=== PATIENT | female | born 1955 | race Caucasian/White ===

== ENCOUNTER → 2020-03-26 09:04 | Outpatient (CLI) | payer OTHER, SELFPAY ==
--- NOTE | ~2020-03-26 | DEXA_ITS ---
Bone Density Report Name: Tonya Brambila Age: 64 Sex: Female Ethnicity: White Date of : 1955 Indication: monitoring treatment; inflammatory bowel disease; history of glucocorticoids; asthma or emphysema; hysterectomy; Referring Provider: RAUL, JATIN Study: Bone densitometry was performed. Exam Date: March 26, 2020 Accession number: [id number] Bone Density: Region BMD T-score Z-score Classification AP Spine (L1, L2, L3) 1.012 -0.1 1.6 Normal Femoral Neck (Left) 0.759 -0.8 0.6 Normal Total Hip (Left) 1.192 2.0 3.2 Normal Femoral Neck (Right) 0.784 -0.6 0.8 Normal Total Hip (Right) 1.059 1.0 2.1 Normal Total Hip Mean 1.126 1.5 2.7 Normal World Health Organization criteria for BMD impression classify patients as: Normal (T-score at or above -1.0), Osteopenia (T-score between -1.0 and -2.5), or Osteoporosis (T-score at or below -2.5). 10-year Fracture Risk: FRAX not reported because: All T-scores for Spine Total, Hip Total, Femoral Neck at or above -1.0 Treated for osteoporosis Previous Exams: Region Exam Age BMD T-score BMD Change BMD Change Date g/cm2 vs Baseline vs Previous AP Spine(L1, L2, L3) 03/26/2020 64 1.012 -0.1 -0.050 -0.067* 03/05/2013 57 1.078 0.5 0.017 0.040* 06/20/2010 54 1.039 0.2 -0.023 -0.023 05/24/2006 50 1.062 0.4 Total Hip(Left) 03/26/2020 64 1.192 2.0 0.170 0.173* 03/05/2013 57 1.019 0.6 -0.003 0.083* 06/20/2010 54 0.936 0.0 -0.085 -0.085 05/24/2006 50 1.021 0.7 Total Hip(Right) 03/26/2020 64 1.059 1.0 0.124 0.090* 03/05/2013 57 0.968 0.2 0.034 0.052* 06/20/2010 54 0.916 -0.2 -0.019 -0.019 05/24/2006 50 0.935 -0.1 *Denotes significance at 95% confidence level, LSC for AP Spine = 0.022 g/cm2, LSC for Total Hip = 0.027 g/cm2 Clinical Information Provided by Patient: Has taken Glucocorticoids Is being treated for osteoporosis Has used the following medications: HRT (i.e. estrogen/hormone therapy), Vitamin D, Calcium Has the following medical conditions: Asthma or Emphysema, Inflammatory bowel diseases, Hysterectomy Patient maximum height was 58.5 Menopause Age: 40 No regular weight bearing exercise Drinks caffeinated beverages Onset of menses at age 11 Number of children 2
== END ==
PROVIDERS: Visit Provider Nurse Practitioner
DX: Z78.0 Asymptomatic menopausal state (principal)
CPT/HCPCS: 77080

== ENCOUNTER 2020-05-15 12:47 | Outpatient (CLI) | payer MEDICARE, SELFPAY ==
--- NOTE | ~2020-05-15 | XR_ITS ---
EXAMINATION: XR lumbar spine min 4V DATE: 05/15/2020 13:22 INDICATION: Low back pain TECHNIQUE: Anteroposterior, lateral in neutral, flexion and extension, and bilateral oblique views of the lumbar spine, and cone-down lateral view of the lumbosacral junction were obtained. COMPARISON: 11/08/2012 FINDINGS: There is no fracture, dislocation, or subluxation. No laxity is present with flexion or ext ension. The vertebral body heights are normal. There is mild to moderate loss of intervertebral disc space height throughout the lumbar spine with interval worsening since the comparison examination. Th ere is no fracture. There is severe facet osteoarthritis at L5-S1. Cholecystectomy clips are noted. T he bowel gas pattern is normal. A moderate volume of colonic stool is present. IMPRESSION: 1. Moderate lumbar spondylosis with slight interval worsening. Reviewed, dictated and finalized at location A.
== END 2020-05-15 12:48 | disposition home or self-care (01) ==
PROVIDERS: PCP Internal Medicine; Visit Provider Internal Medicine
DX: M47.816 Spondylosis without myelopathy or radiculopathy, lumbar region (principal)
CPT/HCPCS: 72110

== ENCOUNTER 2020-06-17 07:16 | Outpatient (CLI) | payer MEDICARE, SELFPAY ==
--- NOTE | 2020-06-17 07:27 | ECHO_ITS ---
Patient Info Name: Tonya Brambila Age: 64 years : 1955 Gender: Female Ht: 57 in Wt: 233 lbs BSA: 2.14 m2 HR: 74 bpm BP: 146 / 47 mmHg Technical Quality: Good Exam Date: 06/17/2020 7:41 AM Exam Location: [facility] Patient Status: Outpatient Admit Date: 06/17/2020 Staff Ordering Physician: Kwabena Liu MD Psych Specialist: Michael Clifford, HUBERT, RT Attending Provider: Kwabena Liu MD Referring Physician: Noe PAGE; Exam Type: CA echo doppler color flow Study Info Indications R94.31 - Abnormal electrocardiogram ECG EKG Complete two-dimensional, color flow and Doppler transthoracic echocardiogram is performed. Summary 1. Complete two-dimensional, color flow and Doppler transthoracic echocardiogram is performed. 2. Left ventricular chamber dimension is normal. 3. Left ventricular systolic function is normal, estimated at 65-70%. 4. The left ventricular diastolic function is normal. 5. E/e' 9 is minimally elevated. 6. There is mild tricuspid valve regurgitation. Left Ventricle E/e' 9 is minimally elevated. Left ventricular chamber dimension is normal. Left ventricular systolic function is normal, estimated at 65-70%. The left ventricular diastolic function is normal. Right Ventricle Right ventricular chamber dimension is normal. Right ventricular systolic function is normal. Left Atria Left atrial chamber dimension is normal. Right Atria Right atrial chamber dimension is normal. Aortic Valve The aortic valve is trileaflet. There is no aortic valve stenosis. There is no aortic valve regurgitation. Pulmonic Valve There is no pulmonic regurgitation. Mitral Valve There is no mitral valve stenosis. There is no mitral valve regurgitation. Tricuspid Valve There is mild tricuspid valve regurgitation. RVSP is not calculated due to an inadequate TR jet. Pericardium/Pleural There is no pericardial effusion. Inferior Vena Cava Normal inferior vena cava with >50% collapse upon inspiration consistent with normal right atrial pressure, 5 mmHg. Aorta The aortic root size at the sinus of Valsalva is normal. Left Ventricular Outflow Tract Name Value Normal LVOT 2D LVOT Diameter 2.0 cm LVOT Doppler LVOT Peak Gradient 6 mmHg LVOT Mean Gradient 3 mmHg LVOT VTI 23 cm LVOT VTI/AV VTI Ratio 0.8 LVOT Stroke Volume 70 ml LVOT CO 5.0 l/min LVOT CI 2.4 l/min/m2 Mitral Valve Name Value Normal MV Doppler MV Decel [place] 494 cm/s2 MV PHT 54 ms MV Area (PHT) 4.1 cm2 4.0-5.0 MV Diastolic Function ---------
== END 2020-06-17 07:17 | disposition home or self-care (01) ==
PROVIDERS: PCP Internal Medicine; Visit Provider Internal Medicine
DX: R94.31 Abnormal electrocardiogram [ECG] [EKG] (principal); I36.1 Nonrheumatic tricuspid (valve) insufficiency
CPT/HCPCS: 93306

== ENCOUNTER 2020-11-04 10:59 | Outpatient (CLI) | payer MEDICARE, SELFPAY | END 2020-11-04 11:00 | disposition home or self-care (01) | LOC: ANHCOVIDVC 10:59 | PROVIDERS: PCP Internal Medicine | DX: Z23 Encounter for immunization (principal) | CPT/HCPCS: 0001A; 91300 ==

== ENCOUNTER 2020-11-25 11:01 | Outpatient (CLI) | payer MEDICARE, SELFPAY | END 2020-11-25 11:02 | disposition home or self-care (01) | LOC: ANHCOVIDVC 11:01 | PROVIDERS: PCP Internal Medicine | DX: Z23 Encounter for immunization (principal) | CPT/HCPCS: 0002A; 91300 ==

== ENCOUNTER 2021-04-21 11:39 | Emergency (ER) | payer MEDICARE, SELFPAY ==
[2021-04-21 11:44] VITALS: BP 132/66; PULSE 105; RESP 22; O2SAT 99
--- NOTE | 2021-04-21 12:00 | ED.GENADULT ---
HPI - General Adult General Chief complaint: Allergic Reaction Stated complaint: allergic rxn Time Seen by Provider: 04/21/21 11:43 Source: patient History of Present Illness HPI narrative: Patient is a 65 y/o female complaining of moderate throat swelling, facial flush and SOB starting less 1 hour ago. She states that she just came out physical therapy and ate some webb and egg. She used her asthma inhaler which seems to help with her SOB. She does not feel throat swelling currently. Related Data Home Medications Medication Instructions Recorded Confirmed estradiol 10 mcg vaginal tablet 10 mcg VAGINAL 2XW 12/28/19 12/25/20 aspirin 81 mg tablet,delayed 81 mg PO DAILY 05/14/20 12/25/20 release calcium carbonate 500 mg calcium 500 mg PO DAILY 05/14/20 12/25/20 (1,250 mg) tablet cetirizine 10 mg tablet 10 mg PO DAILY 05/14/20 12/25/20 cholecalciferol (vitamin D3) 1,250 50,000 unit PO 2XW cap 05/14/20 12/25/20 mcg (50,000 unit) capsule esomeprazole magnesium 20 mg 20 mg PO DAILY 05/14/20 12/25/20 capsule,delayed release lactase 4,500 unit tablet See Rx Instructions PO .COMPLEX 05/14/20 12/25/20 naltrexone 50 mg tablet 4.5 mg PO DAILY tablet 05/15/20 12/25/20 cholecalciferol (vitamin D3) 25 25 mcg PO DAILY 06/19/20 12/25/20 mcg (1,000 unit) capsule Allergies Allergy/AdvReac Type Severity Reaction Status Date / Time cephalexin Allergy Severe HIVES Verified 12/22/20 15:08 fentanyl Allergy Severe o2 sats Verified 12/22/20 15:08 dropped, severe prolonged itching ibuprofen Allergy Severe HIVES AND Verified 12/22/20 15:08 BLADDER SWELLING morphine Allergy Severe THROAT Verified 12/22/20 15:08 SWELLING naproxen Allergy Severe LEGS Verified 12/22/20 15:08 SWELLING AND KIDNEY PROBLEMS nitrofurantoin Allergy Severe HIVES Verified 12/22/20 15:08 duloxetine Allergy Intermediate SORES IN Verified 12/22/20 15:08 MOUTH tapentadol Allergy Intermediate BREATHING Verified 12/22/20 15:08 ISSUES AND ITCHING erythromycin base Allergy Unknown Vomiting Verified 12/22/20 15:08 codeine AdvReac Severe NAUSEA AND Verified 12/22/20 15:08 VOMITING AND MIGRAINE propoxyphene AdvReac Severe NAUSEA AND Verified 12/22/20 15:08 VOMIT cyclobenzaprine AdvReac shortness Verified 12/22/20 15:08 [From Flexeril] of breath Review of Systems Constitutional: Constitutional: Denies chills, Denies fever(s), Denies headache(s) and Denies weakness Eyes: Eyes: Denies blurry vision ENT: Denies headache(s), Denies neck pain and Reports throat swelling Cardiovascular: Cardiovascular: Denies chest pain and Reports dyspnea Respiratory: Respiratory: Denies cough and Reports dyspnea Gastrointestinal: Gastrointestinal: Denies abdominal pain, Denies diarrhea, Denies nausea and Denies vomiting Genitourinary: Genitourinary: Denies hematuria and Denies dysuria Musculoskeletal: Musculoskeletal: Denies back pain and Denies neck pain Integumentary/Breasts: Skin/Breast: Reports other (facial flushing) Neurologic: Denies headache(s) and Denies weakness PMFSH Past Medical History Medical History Abnormal EKG Body mass index (BMI) 45.0-49.9, adult Chronic low back pain Diabetes type 2, uncontrolled Elevated homocysteine Encounter for routine adult health examination without abnormal findings Essential (primary) hypertension Floaters in visual field Follow up GERD (gastroesophageal reflux disease) Hearing loss of both ears History of cataract Low back pain 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
[2021-04-21] MEDS: diphenhydrAMINE HCl INJ 50 MG/ML VIAL IV PUSH (12:11)
[2021-04-21 14:00] VITALS: BP 107/46; PULSE 80; RESP 18; O2SAT 100
[2021-04-21 16:03] VITALS: BP 125/85; PULSE 78; RESP 18; O2SAT 99
== END 2021-04-21 18:20 | disposition home or self-care (01) ==
PROVIDERS: Emergency Provider Emergency Medicine; PCP Internal Medicine
DX: T78.40XA Allergy, unspecified, initial encounter (principal); E11.9 Type 2 diabetes mellitus without complications; I10 Essential (primary) hypertension; K21.9 Gastro-esophageal reflux disease without esophagitis; G47.33 Obstructive sleep apnea (adult) (pediatric); E55.9 Vitamin D deficiency, unspecified; Z79.82 Long term (current) use of aspirin; Z79.4 Long term (current) use of insulin
CPT/HCPCS: 96374; 99284; J1200

== ENCOUNTER 2021-04-28 13:36 | Outpatient (CLI) | payer MEDICARE, SELFPAY ==
--- NOTE | ~2021-04-28 | CT_ITS ---
EXAMINATION: CT soft tissue neck w con EXAM DATE: 04/28/2021 14:01 INDICATION: R59.9 - Enlarged lymph nodes, unspecified. Left ear and jaw pain for 5 days. TECHNIQUE: Spiral CT of the neck was performed following intravenous injection of 75 mL Omnipaque 350 . Axial, coronal and sagittal images were reviewed. The dose-length product (DLP) for this examinat ion was 448.31 mGy-cm. The exposure was tailored according to patient size (auto mA exposure control ), and iterative reconstruction (ASIR) was used as additional dose reduction technique. There is no prior study for comparison. FINDINGS: The thyroid gland is unremarkable. The submandibular and parotid glands are symmetric. There is no cervical lymphadenopathy. There are no masses identified. The superior mediastinum is unremarkable. The airway is unremarkable. Parapharyngeal and pre-glottic fat planes are preserve d. There are medially oriented carotid arteries without stenosis. The orbits are unremarkable. V isualized sinuses and mastoid air cells are well aerated. Moderate cervical disc disease, mild to m oderate arthropathy. There is cervical spondylosis. IMPRESSION: Unremarkable CT neck examination. Reviewed, dictated and finalized at location A.
== END 2021-04-28 13:37 | disposition home or self-care (01) ==
PROVIDERS: PCP Internal Medicine; Visit Provider Internal Medicine
DX: R59.9 Enlarged lymph nodes, unspecified (principal); H92.02 Otalgia, left ear; M47.812 Spondylosis without myelopathy or radiculopathy, cervical region
CPT/HCPCS: 70491; Q9967

== ENCOUNTER 2021-10-12 11:27 | Outpatient (CLI) | payer MEDICARE, SELFPAY ==
[2021-10-12 12:10] LABS: Anion Gap 11 mmol/L (8-16); Blood Urea Nitrogen 12 mg/dL (7-17); Calcium 8.9 mg/dL (8.4-10.2); Carbon Dioxide 21 mmol/L (22-30); Chloride 107 mmol/L (98-107); Estimated Glomerular Filt Rate > 60; Glucose 161 mg/dL (65-110); Potassium 3.8 mmol/L (3.4-5.0); Sodium 139 mmol/L (137-145)
== END 2021-10-12 11:28 | disposition home or self-care (01) ==
LOC: ANHSURGERY 11:32
PROVIDERS: Anesthesiology; PCP Internal Medicine; Visit Provider Otolaryngology
DX: E11.65 Type 2 diabetes mellitus with hyperglycemia (principal); Z01.818 Encounter for other preprocedural examination
CPT/HCPCS: 36415; 80048

== ENCOUNTER 2021-10-15 02:53 | Day surgery (SDC) | payer MEDICARE, SELFPAY ==
[2021-10-06 15:52] VITALS: BMI 49.8
--- NOTE | 2021-10-06 16:00 | SUR.PREOP ---
Report to the Outpatient Waiting Room, entrance under the green pavilion located off [facility], at time 0815__ on date _10/15/21 . OR Time: _1015 . - You and your visitor will be asked a series of questions to screen for COVID 19 for your protection. - A mask is required within the hospital. Preoperative COVID Testing Requirements: No COVID Test needed if: (proof is required; if not received patient will have Rapid Test prior to entry) - Patient has received COVID Vaccine at least 14 days prior to procedure date or - Patient has positive COVID test result within last 90 days of surgery date. COVID Test needed if above criteria is not met If not COVID vaccinated a COVID test must be conducted within 72 hours of surgery and patient is asked to isolate self from time of testing until procedure. You will go to the [facility] for your COVID testing. The [facility] is located at the corner of [address] [facility]. You will only be called if COVID results are positive and your surgeon may reschedule your elective surgery date. Patients may have clear liquids (water, carbonated beverages, clear teas, apple juice) until 3 hours prior to surgery with a maximum of 20 ounces. - No food from midnight until time of surgery - Infants may have breast milk until 4 hours before surgery, infant formula 6 hours prior to surgery. - Children will be allowed to drink immediately following surgery. If applicable, please bring a bottle or sippy cup to assist with drinking. Juice, water, soda, and popsicles are readily available. For infants on formula, please bring formula the day of surgery. Pacifiers are allowed. Take the following medications with a SIP of water the morning of surgery: _use of albuterol inhaler Medications to discontinue per physician ___vitamins Date to take last dose__10/12/21 Please no make-up, nail indonesian, hairspray, perfume, deodorant, or body powder the day of surgery. No jewelry (including any body piercings) or valuables the day of surgery, leave them at home. Please take a shower or bath the night before, or the morning of, surgery with an antibacterial soap. Wear comfortable, loose fitting clothing. Children are encouraged to wear pajamas. - Jewelry must be removed prior to entering the operating room. Rings and piercings that are not removed may be cut off. - The hospital will not accept responsibility for valuables. - Please leave all valuables, including medications, at home the day of surgery. bring albuterol inhaler with you day of surgery. If you are going home after surgery, a licensed boat driver must drive you home. - NO public transportation without another adult. - We recommend that an adult stay with you for 24 hours following discharge. - We also recommend that you do not drive, make important decision, drink alcoholic beverages, or take any drugs that were not prescribed by your health care provider for at least 24 hours after your discharge time. For Pediatric surgeries, we recommend two adults accompany the child home (only one inside the building at this time). One visitor will be allowed to accompany the patient into the hospital. Patients visitor will be instructed to remain with patient at all times or leave the building. We will allow the visitor to come back to the postoperative area when patient is ready. Follow any additional instructions given to you from your surgeon. Telephone instructions given to chayito zhong and asked if any additional questions and then verbalized understanding. Patient advised to call surgeon office or pre surgery nurse liaison [phone] if any additional questions.
--- NOTE | 2021-10-13 06:32 | PM.HPGS ---
History of Present Illness History of Present Illness Consent: Risks, benefits, and alternatives have been discussed and questions answered. Patient agrees to proceed with procedure. Chief complaint: sialadenitis Narrative: Tonya Brambila is a 65 year old female with recurrent episodes of left sialadenitis he has had a stone in the past is interested in having the gland removed she understand the risks regarding marginal weakness hemorrhage infection PMFSH Past Medical History Medical History Abnormal EKG Body mass index (BMI) 45.0-49.9, adult Chronic low back pain Diabetes type 2, uncontrolled Elevated homocysteine Encounter for Medicare annual wellness exam Encounter for routine adult health examination without abnormal findings Essential (primary) hypertension Floaters in visual field Follow up GERD (gastroesophageal reflux disease) Hearing loss Hearing loss of both ears History of cataract Left ear pain Low back pain 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 NELLY on CPAP Parotitis, acute Reactive airway disease Swollen gland Vitamin D deficiency Family History Family History Mother Family history of dementia Social History Social History Smoking status: Never smoker Second hand tobacco smoke exposure: No Alcohol intake: never Spiritual care concerns: No Comments social family medical history noncontributory Meds Home Medications and Allergies Home Medications Medication Instructions Recorded Confirmed Type cholestyramine-aspartame 4 gram 4 gm PO BID #180 each 07/16/19 10/06/21 Rx oral powder for susp in a packet estradiol 10 mcg vaginal tablet 10 mcg VAGINAL 2XW 12/28/19 10/06/21 History aspirin 81 mg tablet,delayed 81 mg PO DAILY 05/14/20 10/06/21 History release calcium carbonate 500 mg calcium 500 mg PO DAILY 05/14/20 10/06/21 History (1,250 mg) tablet cetirizine 10 mg tablet 10 mg PO DAILY 05/14/20 10/06/21 History cholecalciferol (vitamin D3) 1,250 50,000 unit PO 2XW cap 05/14/20 10/06/21 History mcg (50,000 unit) capsule esomeprazole magnesium 20 mg 20 mg PO DAILY 05/14/20 10/06/21 History capsule,delayed release lactase 4,500 unit tablet See Rx Instructions PO .COMPLEX 10/14/20 03/08/22 History metaxalone 800 mg tablet 800 mg PO TID PRN #30 tablet 05/14/20 10/06/21 Rx naltrexone 50 mg tablet 4.5 mg PO DAILY tablet 05/15/20 10/06/21 History flash glucose scanning reader #1 ea 05/20/20 09/22/21 Rx flash glucose sensor #2 ea 05/20/20 09/22/21 Rx cholecalciferol (vitamin D3) 25 25 mcg PO DAILY 06/19/20 10/06/21 History mcg (1,000 unit) capsule insulin syringe-needle U-100 1 mL #100 ea 06/19/20 09/22/21 Rx 32 gauge x 12/14 lancets 33 gauge #100 each 06/19/20 09/22/21 Rx albuterol sulfate 2.5 mg INHALATION Q4-6H PRN #120 08/14/20 10/06/21 Rx vial lisinopril 20 mg tablet 20 mg PO DAILY #90 tablet 11/11/20 10/06/21 Rx topiramate 50 mg tablet 50 mg PO BID #180 tablet 12/23/20 10/06/21 Rx estradiol 0.025 mg/24 hr 1 patch TRANSDERMAL 2XW #8 ea 04/28/21 10/06/21 Rx semiweekly transdermal patch atorvastatin 40 mg tablet 40 mg PO DAILY #90 tablet 06/01/21 10/06/21 Rx dapagliflozin 10 mg tablet See Rx Instructions .ROUTE 06/12/21 10/06/21 Rx .COMPLEX #90 tablet fluticasone furoate 200 1 inh INHALATION DAILY #3 ea 06/18/21 10/06/21 Rx mcg-vilanterol 25 mcg/dose inhalation powder montelukast 10 mg tablet See Rx Instructions .ROUTE 07/13/21 10/06/21 Rx .COMPLEX #90 tablet pen needle, diabetic 32 gauge x See Rx Instructions .ROUTE 08/27/21 10/06/21 Rx 5/32 .COMPLEX #400 ea Tresiba FlexTouch U-100 100 See Rx Instructions .ROUTE 09/18/21 10/06/21 Rx unit/mL (3 mL) subcutaneous pen .COMPLEX #45 ml NS metformin 500 mg tablet,extended 1,000 mg PO DAILY #180 tablet 09/21/21 10/06/21 Rx release 24 hr cli
[2021-10-15] VITALS (12 sets, daily range): BP systolic 120–145; BP diastolic 46–81; PULSE 92–112; RESP 13–20; TEMP 36.7–37.2; O2SAT 93–100
--- NOTE | 2021-10-15 06:26 | WPDHPUPDATE1 ---
History and Physical Update Update Date/Time: 10/15/21 06:26 History and Physical has been reviewed, including an updated exam of the patient. There are NO changes in the patient's condition. Risks, benefits, and alternatives have been discussed and questions answered. Patient agrees to proceed with procedure.
--- NOTE | 2021-10-15 06:30 | WPDHPUPDATE1 ---
History and Physical Update Update Date/Time: 10/15/21 06:30 History and Physical has been reviewed, including an updated exam of the patient. There are NO changes in the patient's condition. Risks, benefits, and alternatives have been discussed and questions answered. Patient agrees to proceed with procedure.
[2021-10-15 07:56] LABS: Glucose Point of Care 208 mg/dl (65-105)
[2021-10-15] MEDS: LACTATED RINGERS 1,000 ML 30 ML IV CONT ×2 (07:56→10:39)
--- NOTE | 2021-10-15 08:20 | PHAR ---
CALLED OR TODD- TO TELL HER OF THE MORPHINE ALLERGY & HYDROMORPHONE ORDER FROM [facility]. SHE WILL LOOK INTO THIS FOR US.
[2021-10-15] MEDS: diphenhydrAMINE HCl INJ 50 MG/ML VIAL 25 MG IV PUSH (08:22)
[2021-10-15] MEDS: FAMOTIDINE 20 MG/2 ML VIAL IV PUSH (08:23)
[2021-10-15] MEDS: ONDANSETRON INJ 4 MG/2 ML VIAL IV PUSH (08:23)
--- NOTE | 2021-10-15 10:31 | W.PM.PROC2 ---
Procedure Note - Detailed Date of Procedure 10/15/21 Pre-op Diagnosis sialadenitis Post-op Diagnosis Same Procedure Performed Excision left submandibular gland Surgeon Brenton Meng MD Description of Procedure Patient was prepped and draped fashion general anesthesia incision was made parallel to the body of the mandible dissection carried down to the platysma the platysma lifted up the gland was identified the posterior aspect of the gland was dissected free of the facial the facial artery was doubly ligated twice the recurrent laryngeal nerve the marginal branch of the facial nerve was identified inferiorly the gland was dissected free of the soft tissue as was anteriorly the mylohyoid muscle lifted up and will nerve was identified the duct was cut and suture ligated drain placed and patient awakened returned to recovery in good condition
[2021-10-15 10:45] LABS: Glucose Point of Care 201 mg/dl (65-105)
--- NOTE | 2021-10-15 10:52 | WPDANESEPPF ---
Anes - Initial Pre Proc Eval Procedure: Operation Date: 10/15/21 09:30 Proposed Procedures p Excision Left Submandibular Gland - Brenton Meng MD Date/Time: 10/15/21 10:52 Surgeon: Brenton Meng MD Pre Op Diagnosis: sialadenitis Patient Data Age: 65 Gender: F Height: 1.45 m Weight: 104.1 kg Last Vital Signs Temp 36.7 C 10/15/21 10:39 Pulse 112 H 10/15/21 10:39 Resp 13 10/15/21 10:39 BP 142/55 H 10/15/21 10:39 Pulse Ox 100 10/15/21 10:39 Allergies Allergy/AdvReac Type Severity Reaction Status Date / Time cephalexin Allergy Severe HIVES Verified 10/15/21 07:26 fentanyl Allergy Severe o2 sats Verified 10/15/21 07:26 dropped, severe prolonged itching ibuprofen Allergy Severe HIVES AND Verified 10/15/21 07:26 BLADDER SWELLING morphine Allergy Severe THROAT Verified 10/15/21 07:26 SWELLING naproxen Allergy Severe LEGS Verified 10/15/21 07:26 SWELLING AND KIDNEY PROBLEMS nitrofurantoin Allergy Severe HIVES Verified 10/15/21 07:26 duloxetine Allergy Intermediate SORES IN Verified 10/15/21 07:26 MOUTH pregabalin [From Lyrica] Allergy Intermediate Itching Verified 10/15/21 07:26 tapentadol Allergy Intermediate BREATHING Verified 10/15/21 07:26 ISSUES AND ITCHING erythromycin base Allergy Unknown Vomiting Verified 10/15/21 07:26 codeine AdvReac Severe NAUSEA AND Verified 10/15/21 07:26 VOMITING AND MIGRAINE cyclobenzaprine AdvReac Severe shortness Verified 10/15/21 07:26 [From Flexeril] of breath propoxyphene AdvReac Severe NAUSEA AND Verified 10/15/21 07:26 VOMIT Home Medications Medication Instructions Recorded Confirmed Type cholestyramine-aspartame 4 gram 4 gm PO BID #180 each 07/16/19 10/06/21 Rx oral powder for susp in a packet estradiol 10 mcg vaginal tablet 10 mcg VAGINAL 2XW 12/28/19 10/06/21 History aspirin 81 mg tablet,delayed 81 mg PO DAILY 05/14/20 10/06/21 History release calcium carbonate 500 mg calcium 500 mg PO DAILY 05/14/20 10/06/21 History (1,250 mg) tablet cetirizine 10 mg tablet 10 mg PO DAILY 05/14/20 10/06/21 History cholecalciferol (vitamin D3) 1,250 50,000 unit PO 2XW cap 05/14/20 10/06/21 History mcg (50,000 unit) capsule esomeprazole magnesium 20 mg 20 mg PO DAILY 05/14/20 10/06/21 History capsule,delayed release lactase 4,500 unit tablet See Rx Instructions PO .COMPLEX 05/14/20 10/06/21 History metaxalone 800 mg tablet 800 mg PO TID PRN #30 tablet 05/14/20 10/06/21 Rx naltrexone 50 mg tablet 4.5 mg PO DAILY tablet 05/15/20 10/06/21 History flash glucose scanning reader #1 ea 05/20/20 09/22/21 Rx flash glucose sensor #2 ea 05/20/20 09/22/21 Rx cholecalciferol (vitamin D3) 25 25 mcg PO DAILY 06/19/20 10/06/21 History mcg (1,000 unit) capsule insulin syringe-needle U-100 1 mL #100 ea 06/19/20 09/22/21 Rx 32 gauge x 5/16 lancets 33 gauge #100 each 06/19/20 09/22/21 Rx albuterol sulfate 2.5 mg INHALATION Q4-6H PRN #120 08/14/20 10/06/21 Rx vial lisinopril 20 mg tablet 20 mg PO DAILY #90 tablet 11/11/20 10/06/21 Rx topiramate 50 mg tablet 50 mg PO BID #180 tablet 12/23/20 10/06/21 Rx estradiol 0.025 mg/24 hr 1 patch TRANSDERMAL 2XW #8 ea 04/28/21 10/06/21 Rx semiweekly transdermal patch atorvastatin 40 mg tablet 40 mg PO DAILY #90 tablet 06/01/21 10/06/21 Rx dapagliflozin 10 mg tablet See Rx Instructions .ROUTE 06/12/21 10/06/21 Rx .COMPLEX #90 tablet fluticasone furoate 200 1 inh INHALATION DAILY #3 ea 06/18/21 10/06/21 Rx mcg-vilanterol 25 mcg/dose inhalation powder montelukast 10 mg tablet See Rx Instructions .ROUTE 07/13/21 10/06/21 Rx .COMPLEX #90 tablet pen needle, diabetic 32 gauge x See Rx Instructions .ROUTE 08/27/21 10/06/21 Rx .COMPLEX #400 ea Tresiba FlexTouch U-100 100 See Rx Instructions .ROUTE 09/18/21 10/06/21 Rx unit/mL (3 mL) subcutaneous pen .COMPLEX #45 ml NS metformin 500 mg tablet,exten
[2021-10-15] MEDS: HYDROmorphone HCL INJ (*CRX) 1 MG/ML SYR 0.25 MG IV PUSH ×8 (11:00→11:35)
--- NOTE | 2021-10-15 11:12 | SUR.PHASEI ---
1108 - dr. kay at bedside assessing pt
[2021-10-15] MEDS: SCOPOLAMINE 1.5 MG PATCH TRANSDERM (12:35)
[2021-10-15] MEDS: PROMETHAZINE HCL 25 MG/ML AMPUL 12.5 MG IV PUSH (12:35)
== END 2021-10-15 13:36 | disposition home or self-care (01) ==
PROVIDERS: PCP Internal Medicine; Visit Provider Otolaryngology
PROC: (CPT 42408; principal; 2021-10-15 09:30)
DX: D17.0 Benign lipomatous neoplasm of skin and subcutaneous tissue of head, face and neck (principal); K11.20 Sialoadenitis, unspecified; I10 Essential (primary) hypertension; E11.9 Type 2 diabetes mellitus without complications; K21.9 Gastro-esophageal reflux disease without esophagitis; G47.33 Obstructive sleep apnea (adult) (pediatric); E55.9 Vitamin D deficiency, unspecified; J45.909 Unspecified asthma, uncomplicated; Z79.4 Long term (current) use of insulin; Z79.51 Long term (current) use of inhaled steroids; Z79.84 Long term (current) use of oral hypoglycemic drugs
CPT/HCPCS: 42440; 82948; 88304; 88307; A9270; C1713; J1100; J1170; J1200; J2405; J2550; J2704; J7120

== ENCOUNTER 2021-12-05 12:40 | Emergency (ER) | payer MEDICARE, SELFPAY ==
--- NOTE | 2021-12-05 12:48 | ED.SKABFB ---
HPI - Skin/Abscess/Foreign Bdy General Chief complaint: Skin/Abscess/Foreign Body Stated complaint: RASH Time Seen by Provider: 12/05/21 12:55 Source: patient Mode of arrival: ambulatory Limitations: no limitations History of Present Illness HPI narrative: Ms. Brambila is a 66-year-old female patient presenting to the clinic today with complaints of a skin rash to her chest as well as some swelling in her left lower jaw. She reports that she had recently had a salivary gland removed by Dr. Meng and thinks that it may be infected. She reports that she has taken a couple days of Doxy and this has improved the swelling to her left lower jaw but, she is now out of the medication and the swelling is getting worse. Related Data Home Medications Medication Instructions Recorded Confirmed estradiol 10 mcg vaginal tablet 10 mcg VAGINAL 2XW 12/28/19 10/29/21 aspirin 81 mg tablet,delayed 81 mg PO DAILY 05/14/20 10/29/21 release calcium carbonate 500 mg calcium 500 mg PO DAILY 05/14/20 10/29/21 (1,250 mg) tablet cetirizine 10 mg tablet 10 mg PO DAILY 05/14/20 10/29/21 cholecalciferol (vitamin D3) 1,250 50,000 unit PO 2XW cap 05/14/20 10/29/21 mcg (50,000 unit) capsule esomeprazole magnesium 20 mg 20 mg PO DAILY 05/14/20 10/29/21 capsule,delayed release lactase 4,500 unit tablet See Rx Instructions PO .COMPLEX 05/14/20 10/29/21 naltrexone 50 mg tablet 4.5 mg PO DAILY tablet 05/15/20 10/29/21 cholecalciferol (vitamin D3) 25 25 mcg PO DAILY 06/19/20 10/29/21 mcg (1,000 unit) capsule Tylenol Arthritis 1,000 mg PO TID 10/06/21 10/29/21 albuterol sulfate 2 puff INHALATION BID 10/06/21 10/29/21 Allergies Allergy/AdvReac Type Severity Reaction Status Date / Time cephalexin Allergy Severe HIVES Verified 10/29/21 14:27 fentanyl Allergy Severe o2 sats Verified 10/29/21 14:27 dropped, severe prolonged itching ibuprofen Allergy Severe HIVES AND Verified 10/29/21 14:27 BLADDER SWELLING morphine Allergy Severe THROAT Verified 10/29/21 14:27 SWELLING naproxen Allergy Severe LEGS Verified 10/29/21 14:27 SWELLING AND KIDNEY PROBLEMS nitrofurantoin Allergy Severe HIVES Verified 10/29/21 14:27 duloxetine Allergy Intermediate SORES IN Verified 10/29/21 14:27 MOUTH pregabalin [From Lyrica] Allergy Intermediate Itching Verified 10/29/21 14:27 tapentadol Allergy Intermediate BREATHING Verified 10/29/21 14:27 ISSUES AND ITCHING erythromycin base Allergy Unknown Vomiting Verified 10/29/21 14:27 codeine AdvReac Severe NAUSEA AND Verified 10/29/21 14:27 VOMITING AND MIGRAINE cyclobenzaprine AdvReac Severe shortness Verified 10/29/21 14:27 [From Flexeril] of breath propoxyphene AdvReac Severe NAUSEA AND Verified 10/29/21 14:27 VOMIT doxycycline AdvReac Unknown nausea Verified 10/29/21 14:27 Review of Systems Review of Systems: Pertinent positives per HPI. Patient denies any fever, chills, rash, headache, visual changes, dizziness, cough, runny nose, sore throat, shortness of breath, chest pain, palpitations, nausea, vomiting, diarrhea, constipation, abdominal pain, or any urinary issues. [facility] Past Medical History Medical History Abnormal EKG Body mass index (BMI) 45.0-49.9, adult Chronic low back pain Diabetes type 2, uncontrolled Elevated homocysteine Encounter for Medicare annual wellness exam Encounter for routine adult health examination without abnormal findings Essential (primary) hypertension Floaters in visual field Follow up GERD (gastroesophageal reflux disease) Hearing loss Hearing loss of both ears History of cataract Left ear pain Low back pain On senior living drug therapy NELLY on CPAP Parotitis, acute Reactive airway disease Swollen gland Vertigo Vitamin D deficiency Family History Family History Mother Fa
[2021-12-05 12:52] VITALS: BP 150/82; PULSE 140; RESP 16; TEMP 37.7; O2SAT 98
== END 2021-12-05 13:05 | disposition home or self-care (01) ==
PROVIDERS: Emergency Provider Nurse Practitioner Family; PCP Internal Medicine
DX: L08.9 Local infection of the skin and subcutaneous tissue, unspecified (principal); E11.9 Type 2 diabetes mellitus without complications; I10 Essential (primary) hypertension; Z79.82 Long term (current) use of aspirin
CPT/HCPCS: 99213; G0463

== ENCOUNTER 2021-12-09 12:06 | Outpatient (CLI) | payer MEDICARE, SELFPAY ==
--- NOTE | ~2021-12-09 | CT_ITS ---
EXAMINATION: CT soft tissue neck w con DATE: 12/09/2021 13:01 INDICATION: Sialoadenitis, unspecified. Left face pain and swelling. TECHNIQUE: Computed tomography (CT) of the neck was performed with 75 mL Omnipaque 300 intravenous co ntrast. Automated exposure control and iterative reconstruction technique were employed. The dose-emma gth product was 552.87 mGy-cm. COMPARISON: CT neck 04/28/2021 FINDINGS: The left submandibular gland is small or absent. Bandlike soft tissue and fat stranding in this area are likely inflammation and/or scarring. There is a 3 mm sialolith in the duct for left sub mandibular gland. There are no pathologically enlarged lymph nodes. There is severe cervical spondyl osis. IMPRESSION: 1. 3 mm sialolith in the dextro left submandibular gland. 2. Small or absent left submandibular gland with bandlike soft tissue and fat stranding in this area that may be inflammation and/or scarring. Reviewed, dictated and finalized at location E. IMPRESSION: 1. 3 mm sialolith in the dextro left submandibular gland. 2. Small or absent left submandibular gland with bandlike soft tissue and fat s tranding in this area that may be inflammation and/or scarring.
[2021-12-09 12:29] LABS: Basophils Absolute Auto 0.1 K/mm3 (0.0-0.1); Basophils Percent Auto 1.2 % (0.2-1.2); Eosinophils Absolute Auto 0.2 K/mm3 (0-0.3); Eosinophils Percent Auto 2.6 % (0-4.4); Hematocrit 48.1 % (37.0-47.0); Immature Granulocyte Absolute 0.06 K/mm3 (0.00-0.031); Immature Granulocyte Percent A 0.8 % (0-0.5); Lymphocytes Absolute Auto 1.87 K/mm3 (0.9-3.2); Lymphocytes Percent Auto 25.5 % (18.3-44.2); Mean Corpuscular HGB Conc 33.3 g/dl (32-36); Mean Corpuscular Hemoglobin 31.2 pg (26-34); Mean Corpuscular Volume 93.8 fl (80-100); Mean Platelet Volume 8.8 fl (7.4-10.4); Monocytes Absolute Auto 0.7 K/mm3 (0.1-0.6); Neutrophils Absolute Auto 4.4 K/mm3 (1.3-6.7); Neutrophils Percent Auto 59.9 % (45.5-73.1); Platelet Count Result 288 k/mm3 (150-375); Red Blood Count 5.13 M/mm3 (4.2-5.4); Red Cell Distribution Width 14.8 % (11.5-14.5); White Blood Count 7.3 K/mm3 (4.5-10.0)
[2021-12-09 12:42] LABS: Anion Gap 9 mmol/L (8-16); Blood Urea Nitrogen 14 mg/dL (7-17); CRP < 0.5 mg/dL (<1.0); Calcium 8.9 mg/dL (8.4-10.2); Carbon Dioxide 23 mmol/L (22-30); Chloride 107 mmol/L (98-107); Estimated Glomerular Filt Rate > 60; Glucose 149 mg/dL (65-110); Potassium 3.9 mmol/L (3.4-5.0); Sodium 139 mmol/L (137-145)
[2021-12-09 12:50] LABS: Estimated Glomerular Filt Rate > 60
[2021-12-09 13:08] LABS: Erythrocyte Sedimentation Rate 6 mm/hr (0-20)
== END 2021-12-09 12:07 | disposition home or self-care (01) ==
LOC: ANHIMG 12:09
PROVIDERS: PCP Internal Medicine; Visit Provider Internal Medicine
DX: B99.9 Unspecified infectious disease (principal); K11.20 Sialoadenitis, unspecified; R59.9 Enlarged lymph nodes, unspecified; Z79.899 Other long term (current) drug therapy
CPT/HCPCS: 36415; 70491; 80048; 85025; 85652; 86140; Q9967

== ENCOUNTER 2021-12-12 18:54 | Observation (INO) | payer MEDICARE, SELFPAY ==
--- NOTE | ~2021-12-12 | MR_ITS ---
EXAMINATION: MR abdomen wo/w con DATE: 12/13/2021 13:00 INDICATION: Right kidney mass. TECHNIQUE: Magnetic resonance imaging (MRI) of the abdomen was performed without and with 19 mL Multi Mandy intravenous contrast. COMPARISON: CT abdomen and pelvis 12/12/2021, abdomen MRI 02/06/2013 FINDINGS: There is diffuse hepatic steatosis. There are cysts in the liver measuring up to 9 mm. The spleen is normal. Pancreas divisum is noted. The adrenal glands are normal. There are cysts in the kidneys elsa uring up to 2.9 cm on the right. There are no dilated loops of bowel. There are no pathologically enl arged lymph nodes. There is no free intraperitoneal fluid. IMPRESSION: 1. Benign cysts in the kidneys. 2. Diffuse hepatic steatosis. Reviewed, dictated and finalized at location B.
--- NOTE | ~2021-12-12 | CT_ITS ---
EXAMINATION: CT abdomen pelvis wo con DATE: 12/12/2021 22:03 INDICATION: Left flank pain. History of kidney stones. TECHNIQUE: Computed tomography (CT) of the abdomen and pelvis was performed without intravenous contr ast. Automated exposure control and iterative reconstruction technique were employed. Exam dose: 139 0.56 mGy-cm total exam DLP. COMPARISON: September 08, [address] abdomen pelvis FINDINGS: The lung bases are clear. Heart size normal. No pericardial or pleural effusion. Several hypodensities of the liver noted, largest 7 mm, situated in the posterior upper left hepatic lobe, possibly small cysts, but too small to definitively characterize. Status post cholecystectomy. No bile duct or pancreatic duct dilatation. No pancreatic mass lesion or calcification. Normal splenic size. Normal morphology of the adrenal glands. Possible rounded 2 cm mass at the posteromedial right kidney; repeat CT examination with IV contrast or MR renal examination is recommended. Left parapelvic renal cysts. No urinary tract calculus or hydroureteronephrosis. The urinary bladder is evacuated. Status post hysterectomy. Normal caliber of the abdominal aorta. No intraperitoneal or retroperitoneal or pelvic mass lesion or adenopathy or ascites is noted. Normal appendix. Diverticulosis of the sigmoid colon; no CT evidence of diverticulitis. No bowel obstruction, bowel wa ll thickening, pneumatosis or intraperitoneal free air. Multilevel degenerative disc disease of the lumbar spine. IMPRESSION: No urinary tract calculus or hydroureteronephrosis Possible rounded 2 cm mass of lower pole of right kidney; further evaluation is recommended; consider repeat CT imaging with IV contrast material or MR examination. Left parapelvic renal cysts Probable small hepatic cysts Status post cholecystectomy Diverticulosis of sigmoid colon; no evidence of diverticulitis Normal appendix Reviewed, dictated and finalized at Location A. Reviewed, dictated and finalized at location A. IMPRESSION: No urinary tract calculus or hydroureteronephrosis Possible rounded 2 cm mass of lower pole of right kidney; further evaluation is recommended; consider repeat CT imaging with IV contrast material or MR examin ation. Left parapelvic renal cysts Probable small hepatic cysts Status post cholecystectomy Diverticulosis of sigmoid colon; no evidence of diverticulitis Normal appendix
[2021-12-12 19:02] VITALS: BP 143/73; PULSE 128; RESP 17; TEMP 36.8; O2SAT 98
[2021-12-12 21:05] LABS: Basophils Absolute Auto 0.1 K/mm3 (0.0-0.1); Basophils Percent Auto 0.7 % (0.2-1.2); Eosinophils Absolute Auto 0.2 K/mm3 (0-0.3); Eosinophils Percent Auto 1.1 % (0-4.4); Hematocrit 46.9 % (37.0-47.0); Immature Granulocyte Absolute 0.07 K/mm3 (0.00-0.031); Immature Granulocyte Percent A 0.5 % (0-0.5); Lymphocytes Absolute Auto 1.62 K/mm3 (0.9-3.2); Lymphocytes Percent Auto 11.4 % (18.3-44.2); Mean Corpuscular Hemoglobin 30.9 pg (26-34); Mean Corpuscular Volume 96.5 fl (80-100); Mean Platelet Volume 9.2 fl (7.4-10.4); Monocytes Percent Auto 7.1 % (2.6-8.5); Neutrophils Absolute Auto 11.3 K/mm3 (1.3-6.7); Neutrophils Percent Auto 79.2 % (45.5-73.1); Platelet Count Result 247 k/mm3 (150-375); Red Blood Count 4.86 M/mm3 (4.2-5.4); Red Cell Distribution Width 14.5 % (11.5-14.5); White Blood Count 14.3 K/mm3 (4.5-10.0)
[2021-12-12 21:06] LABS: Add Urine Microscopic? YES; Appearance Urine Clear (Clear); Bilirubin Urine Negative (Negative); Blood Urine 3+ (Negative); Color Urine Yellow (Yellow); Glucose Urine UA 3+ mg/dL (Negative); Ketones Urine Negative (Negative); Leukocyte Esterase Ur Negative LEU/UL (Negative); Nitrate Urine Negative (Negative); Protein Urine 2+ mg/dL (Negative); Specific Grav Ur 1.025 (1.001-1.035); Urobilinogen Urine 0.2 mg/dL (<2.0)
[2021-12-12 21:12] LABS: RBC Urine >75 /hpf (0-2); Squamous Epithelial Cell Urine Occasional /hpf (Few); WBC Urine 51-75 /hpf
[2021-12-12 21:18] LABS: Alanine Aminotransferase 36 U/L (6-35); Alkaline Phosphatase 94 U/L (38-126); Anion Gap 10 mmol/L (8-16); Aspartate Amino Transferase 32 U/L (14-36); Bilirubin,Total 0.3 mg/dL (0.2-1.3); Blood Urea Nitrogen 15 mg/dL (7-17); Calcium 9.1 mg/dL (8.4-10.2); Carbon Dioxide 25 mmol/L (22-30); Chloride 101 mmol/L (98-107); Estimated Glomerular Filt Rate > 60; Glucose 146 mg/dL (65-110); Potassium 4.3 mmol/L (3.4-5.0); Sodium 136 mmol/L (137-145)
[2021-12-12 21:32] VITALS: O2SAT 98
[2021-12-12 22:01] VITALS: O2SAT 97
[2021-12-12 22:23] VITALS: BP 142/76; PULSE 114; RESP 20; O2SAT 95
[2021-12-12] MEDS: LACTATED RINGERS 1,000 ML 999 ML IV CONT (22:23)
--- NOTE | 2021-12-12 22:42 | ED.FEMALEGU ---
HPI - Female Genitourinary General Chief complaint: Urogenital-Female Stated complaint: kidney stone? Time Seen by Provider: 12/12/21 21:36 History of Present Illness HPI Narrative: 66-year-old female with history of kidney stones presents with 1 day of left flank pain, some discomfort with urination, denies any fevers or chills, some nausea. Related Data Home Medications Medication Instructions Recorded Confirmed estradiol 10 mcg vaginal tablet 10 mcg VAGINAL 2XW 12/28/19 12/13/21 aspirin 81 mg tablet,delayed 81 mg PO DAILY 05/14/20 12/13/21 release calcium carbonate 500 mg calcium 500 mg PO DAILY 05/14/20 12/13/21 (1,250 mg) tablet cetirizine 10 mg tablet 10 mg PO DAILY 05/14/20 12/13/21 cholecalciferol (vitamin D3) 1,250 50,000 unit PO 2XW cap 05/14/20 12/13/21 mcg (50,000 unit) capsule esomeprazole magnesium 20 mg 20 mg PO DAILY 05/14/20 12/13/21 capsule,delayed release lactase 4,500 unit tablet 4,500 unit PO TIDWMEAL 05/14/20 12/13/21 naltrexone 50 mg tablet 4.5 mg PO DAILY tablet 05/15/20 12/13/21 cholecalciferol (vitamin D3) 25 25 mcg PO DAILY 06/19/20 12/13/21 mcg (1,000 unit) capsule Tylenol Arthritis 1,000 mg PO TID 10/06/21 12/13/21 albuterol sulfate 2 puff INHALATION BID 10/06/21 12/13/21 Farxiga 10 mg PO DAILY 12/13/21 12/13/21 Tresiba FlexTouch U-100 50 unit SUBCUT DAILY 12/13/21 12/13/21 atorvastatin 40 mg PO DAILY 12/13/21 12/13/21 insulin aspart U-100 [Novolog 10 unit SUBCUT TID 12/13/21 12/13/21 Flexpen U-100 Insulin] lisinopril 20 mg PO DAILY 12/13/21 12/13/21 montelukast 10 mg PO DAILY 12/13/21 12/13/21 tramadol 50 - 100 mg PO Q4-6H PRN 12/13/21 12/13/21 Allergies Allergy/AdvReac Type Severity Reaction Status Date / Time cephalexin Allergy Severe HIVES Verified 12/13/21 03:16 fentanyl Allergy Severe o2 sats Verified 12/13/21 03:16 dropped, severe prolonged itching ibuprofen Allergy Severe HIVES AND Verified 12/13/21 03:16 BLADDER SWELLING morphine Allergy Severe THROAT Verified 12/13/21 03:16 SWELLING naproxen Allergy Severe LEGS Verified 12/13/21 03:16 SWELLING AND KIDNEY PROBLEMS nitrofurantoin Allergy Severe HIVES Verified 12/13/21 03:16 duloxetine Allergy Intermediate SORES IN Verified 12/13/21 03:16 MOUTH pregabalin [From Lyrica] Allergy Intermediate Itching Verified 12/13/21 03:16 tapentadol Allergy Intermediate BREATHING Verified 12/13/21 03:16 ISSUES AND ITCHING erythromycin base Allergy Unknown Vomiting Verified 12/13/21 03:16 codeine AdvReac Severe NAUSEA AND Verified 12/13/21 03:16 VOMITING AND MIGRAINE cyclobenzaprine AdvReac Severe shortness Verified 12/13/21 03:16 [From Flexeril] of breath propoxyphene AdvReac Severe NAUSEA AND Verified 12/13/21 03:16 VOMIT doxycycline AdvReac Unknown nausea Verified 12/13/21 03:16 Review of Systems Review of Systems: CONST: No fever. HEENT: No sore throat C/V: No chest pain RESP: No cough GI: Reports abdominal pain, nausea : dysuria. M/S: No joint pain. SKIN: Cellulitis being treated NEURO: [No headache or focal numbness or weakness] PSYCH: [No depression] PMFSH Past Medical History Medical History Abnormal EKG Body mass index (BMI) 45.0-49.9, adult Chronic low back pain Diabetes type 2, uncontrolled Elevated homocysteine Encounter for Medicare annual wellness exam Encounter for routine adult health examination without abnormal findings Essential (primary) hypertension Floaters in visual field Follow up GERD (gastroesophageal reflux disease) Hearing loss Hearing loss of both ears History of cataract Left ear pain Low back pain On intermediate drug therapy NELLY on CPAP Parotitis, acute Reactive airway disease Staph infection Swollen gland Vertigo Vitamin D deficiency Family History Family History Mother Heart disease Fam
[2021-12-12] MEDS: KETOROLAC 30 MG/ML VIAL (*BKC) IV PUSH (23:13)
[2021-12-12] MEDS: cefTRIAXone 2 GM in SODIUM CHLORIDE 0.9% IV 100 ML 200 ML IVPB (23:52)
[2021-12-13] VITALS (8 sets, daily range): BP systolic 101–133; BP diastolic 50–70; PULSE 97–105; RESP 16–21; TEMP 36.5–36.9; O2SAT 95–100; BMI 47.4
[2021-12-13] MEDS: LACTATED RINGERS 1,000 ML 999 ML IV CONT (02:44)
--- NOTE | 2021-12-13 02:49 | ADMGEN ---
This patient, Tonya Brambila, was admitted to Medical Room 243-01. Patient/family oriented to hospital policies and general routines including ID bracelet, bed and alarms, visiting hours, pain management, procedures, bathroom and other care routines, personal items, smoking policy, room service/diet, and visiting hours. Information on how to activate the Rapid Response Team has been discussed. Patient/Family are encouraged to report perceived risks to care and to ask questions if they do not understand what they are told or what they should do.
--- NOTE | 2021-12-13 03:50 | PCRCNOTE ---
Patient states she will wait until tonight to use her own machine if she is still admitted as a patient. Denies need for hospital unit at this time.
[2021-12-13] MEDS: traMADol HCL (*CRX) 50 MG TABLET 100 MG PO ×3 (04:06→22:04)
[2021-12-13] MEDS: SODIUM CHLORIDE 0.9% IV 1,000 ML 100 ML IV CONT ×2 (04:07→19:18)
--- NOTE | 2021-12-13 07:59 | WPDURCON ---
Assessment and Plan Assessment and plan (1) Pyelonephritis: Code(s): N12 - Tubulo-interstitial nephritis, not specified as acute or chronic Status: Acute Assessment and Plan: No obstructing stone or other urologic abnormalities. Urine culture pending. Treat with culture specific antibiotics for 14 days. (2) History of kidney stones: Code(s): Z87.442 - Personal history of urinary calculi Status: Acute Urology Consult Note HPI Date Seen: 12/13/21 Requesting Physician: Lorri Jones PA-C Primary Care Provider: Kwabena Liu MD Consult Narrative Narrative: Tonya Brambila is a 66 year old female suture the request of the emergency room at [facility]. She came in with a 36-48 hour history of urinary symptoms which include urgency, frequency, dysuria, light pink urine. She also noted some left-sided low back pain. She was diagnosed with urinary tract infection/pyelonephritis. She has history of kidney stones. She was taking care of and [address] Current [address] scan shows no kidney stones. She did looks to have a extrarenal pelvis on the left but no clear hydronephrosis. She is being admitted and treated for pyelonephritis Review of Systems Review of Systems: All systems reviewed & are unremarkable except as noted in HPI and below PMFSH Past Medical History Medical History Abnormal EKG Body mass index (BMI) 45.0-49.9, adult Chronic low back pain Diabetes type 2, uncontrolled Elevated homocysteine Encounter for Medicare annual wellness exam Encounter for routine adult health examination without abnormal findings Essential (primary) hypertension Floaters in visual field Follow up GERD (gastroesophageal reflux disease) Hearing loss Hearing loss of both ears History of cataract Left ear pain Low back pain 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 NELLY on CPAP Parotitis, acute Reactive airway disease Staph infection Swollen gland Vertigo Vitamin D deficiency Family History Family History Mother Heart disease Family history of dementia Cerebrovascular accident Father Lung cancer Liver cancer Alcoholic Social History Social History Smoking status: Never smoker Second hand tobacco smoke exposure: No Alcohol intake: never Substance use: never Substance use type: does not use Spiritual care concerns: No Meds Home Medications and Allergies Home Medications Medication Instructions Recorded Confirmed Type cholestyramine-aspartame 4 gram 4 gm PO BID #180 each 07/16/19 12/13/21 Rx oral powder for susp in a packet estradiol 10 mcg vaginal tablet 10 mcg VAGINAL 2XW 12/28/19 12/13/21 History aspirin 81 mg tablet,delayed 81 mg PO DAILY 05/14/20 12/13/21 History release calcium carbonate 500 mg calcium 500 mg PO DAILY 05/14/20 12/13/21 History (1,250 mg) tablet cetirizine 10 mg tablet 10 mg PO DAILY 05/14/20 12/13/21 History cholecalciferol (vitamin D3) 1,250 50,000 unit PO 2XW cap 05/14/20 12/13/21 History mcg (50,000 unit) capsule esomeprazole magnesium 20 mg 20 mg PO DAILY 05/14/20 12/13/21 History capsule,delayed release lactase 4,500 unit tablet 4,500 unit PO TIDWMEAL 05/14/20 12/13/21 History metaxalone 800 mg tablet 800 mg PO TID PRN #30 tablet 05/14/20 12/13/21 Rx naltrexone 50 mg tablet 4.5 mg PO DAILY tablet 05/15/20 12/13/21 History cholecalciferol (vitamin D3) 25 25 mcg PO DAILY 06/19/20 12/13/21 History mcg (1,000 unit) capsule albuterol sulfate 2.5 mg INHALATION Q4-6H PRN #120 08/14/20 12/13/21 Rx vial estradiol 0.025 mg/24 hr 1 patch TRANSDERMAL 2XW #8 ea 04/28/21 12/13/21 Rx semiweekly transdermal patch fluticasone furoate 200 1 inh INHALATION DAILY #3 ea 06/18/21 12/13/21 Rx mcg-vilanterol 25 mcg/dose inhalation powder Tylenol Arthritis 1,000 mg
[2021-12-13 08:02] LABS: Glucose Point of Care 132 mg/dl (65-105)
[2021-12-13] MEDS: ONDANSETRON HCL ODT 4 MG TABLET PO ×3 (08:06→22:04)
[2021-12-13] MEDS: INSULIN GLARGINE (*BKC) 100 UNITS/ML 50 UNITS SUB-Q (08:22)
[2021-12-13] MEDS: INSULIN ASPART (*BKC) 100 UNITS/ML 10 UNITS SUB-Q ×3 (08:23→16:43)
[2021-12-13] MEDS: CLINDAMYCIN HCL 150 MG CAP 300 MG PO ×3 (08:39→22:13)
[2021-12-13 09:56] LABS: Basophils Absolute Auto 0.1 K/mm3 (0.0-0.1); Basophils Percent Auto 0.6 % (0.2-1.2); Eosinophils Absolute Auto 0.2 K/mm3 (0-0.3); Hematocrit 44.8 % (37.0-47.0); Hemoglobin 14.4 g/dL (12.0-15.0); Immature Granulocyte Absolute 0.03 K/mm3 (0.00-0.031); Immature Granulocyte Percent A 0.4 % (0-0.5); Lymphocytes Absolute Auto 1.79 K/mm3 (0.9-3.2); Lymphocytes Percent Auto 22.1 % (18.3-44.2); Mean Corpuscular HGB Conc 32.1 g/dl (32-36); Mean Corpuscular Hemoglobin 30.9 pg (26-34); Mean Corpuscular Volume 96.1 fl (80-100); Mean Platelet Volume 9.1 fl (7.4-10.4); Monocytes Absolute Auto 0.8 K/mm3 (0.1-0.6); Monocytes Percent Auto 9.8 % (2.6-8.5); Neutrophils Absolute Auto 5.3 K/mm3 (1.3-6.7); Neutrophils Percent Auto 65.1 % (45.5-73.1); Platelet Count Result 220 k/mm3 (150-375); Red Blood Count 4.66 M/mm3 (4.2-5.4); Red Cell Distribution Width 14.5 % (11.5-14.5); White Blood Count 8.1 K/mm3 (4.5-10.0)
[2021-12-13 10:10] LABS: Alanine Aminotransferase 32 U/L (6-35); Albumin Level 3.4 g/dL (3.5-5.1); Alkaline Phosphatase 73 U/L (38-126); Anion Gap 6 mmol/L (8-16); Aspartate Amino Transferase 31 U/L (14-36); Bilirubin,Total 0.3 mg/dL (0.2-1.3); Blood Urea Nitrogen 14 mg/dL (7-17); Carbon Dioxide 26 mmol/L (22-30); Chloride 104 mmol/L (98-107); Estimated Glomerular Filt Rate > 60; Glucose 139 mg/dL (65-110); Magnesium 1.8 mg/dL (1.6-2.3); Potassium 3.7 mmol/L (3.4-5.0); Sodium 136 mmol/L (137-145)
[2021-12-13] MEDS: ACETAMINOPHEN/BUTALBITAL/CAFFEINE 325-50-40 MG TABLET (FIORICET) 1 TAB PO (10:25)
[2021-12-13] MEDS: MONTELUKAST SODIUM 10 MG TABLET PO (10:25)
[2021-12-13] MEDS: ATORVASTATIN 40 MG TABLET PO (10:25)
[2021-12-13] MEDS: LORATADINE 10 MG TABLET PO (10:25)
[2021-12-13] MEDS: TOPIRAMATE 25 MG TABLET 50 MG PO ×2 (10:25→20:05)
[2021-12-13] MEDS: lisinopriL 20 MG TABLET PO (10:25)
[2021-12-13] MEDS: CHOLESTYRAMINE LIGHT 4 GM POWD.PACK PO ×2 (10:25→16:05)
[2021-12-13] MEDS: ASPIRIN 81 MG ENTERIC TABLET PO (10:25)
[2021-12-13] MEDS: PANTOPRAZOLE 40 MG TABLET PO (10:25)
--- NOTE | 2021-12-13 10:42 | PM.IMHP ---
H&P: HPI History of Present Illness Date/Time: 12/13/21 10:42 Still is a 66-year-old female with past medical history of diabetes mellitus, COPD, migraine headaches, recurrent kidney stones, who presents with 2 day history of left-sided back pain and pink urine. She reports the pain started on Tuesday, and shortly thereafter she began to have increased frequency of her urine, painful urination, and noticed her urine had turned pink. She denies chest pain, shortness of breath, fevers, chills, changes in stooling habits. She has had some vomiting and nausea today which she attributes to her migraine headache. She endorses decreased PO intake since Tuesday. Of note patient was recently hospitalized here with a skin infection and swelling of the left lower jaw secondary to salivary gland stone, which she was treated with clindamycin for. Chief Complaint: Back pain and urinary changes Review of Systems Review of Systems: All systems reviewed & are unremarkable except as noted in HPI and below PMFSH Past Medical History Medical History (Updated 12/13/21 @ 11:05 by Lorri Jones PA-C) Abnormal EKG Body mass index (BMI) 45.0-49.9, adult Chronic low back pain Diabetes type 2, uncontrolled Elevated homocysteine Encounter for Medicare annual wellness exam Encounter for routine adult health examination without abnormal findings Essential (primary) hypertension Floaters in visual field Follow up GERD (gastroesophageal reflux disease) Hearing loss Hearing loss of both ears History of cataract Left ear pain Low back pain 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 NELLY on CPAP Parotitis, acute Reactive airway disease Staph infection Swollen gland Vertigo Vitamin D deficiency Surgical History Surgical History (Updated 12/13/21 @ 11:07 by Lorri Jones PA-C) H/O: hysterectomy Family History Family History Mother Heart disease Family history of dementia Cerebrovascular accident Father Lung cancer Liver cancer Alcoholic Social History Social History Smoking status: Never smoker Second hand tobacco smoke exposure: No Alcohol intake: never Substance use: never Substance use type: does not use Spiritual care concerns: No Meds Home Medications and Allergies Home Medications Medication Instructions Recorded Confirmed Type cholestyramine-aspartame 4 gram 4 gm PO BID #180 each 07/16/19 12/13/21 Rx oral powder for susp in a packet estradiol 10 mcg vaginal tablet 10 mcg VAGINAL 2XW 12/28/19 12/13/21 History aspirin 81 mg tablet,delayed 81 mg PO DAILY 05/14/20 12/13/21 History release calcium carbonate 500 mg calcium 500 mg PO DAILY 05/14/20 12/13/21 History (1,250 mg) tablet cetirizine 10 mg tablet 10 mg PO DAILY 05/14/20 12/13/21 History cholecalciferol (vitamin D3) 1,250 50,000 unit PO 2XW cap 05/14/20 12/13/21 History mcg (50,000 unit) capsule esomeprazole magnesium 20 mg 20 mg PO DAILY 05/14/20 12/13/21 History capsule,delayed release lactase 4,500 unit tablet 4,500 unit PO TIDWMEAL 05/14/20 12/13/21 History metaxalone 800 mg tablet 800 mg PO TID PRN #30 tablet 05/14/20 12/13/21 Rx naltrexone 50 mg tablet 4.5 mg PO DAILY tablet 05/15/20 12/13/21 History cholecalciferol (vitamin D3) 25 25 mcg PO DAILY 06/19/20 12/13/21 History mcg (1,000 unit) capsule albuterol sulfate 2.5 mg INHALATION Q4-6H PRN #120 08/14/20 12/13/21 Rx vial estradiol 0.025 mg/24 hr 1 patch TRANSDERMAL 2XW #8 ea 04/28/21 12/13/21 Rx semiweekly transdermal patch fluticasone furoate 200 1 inh INHALATION DAILY #3 ea 06/18/21 12/13/21 Rx mcg-vilanterol 25 mcg/dose inhalation powder Tylenol Arthritis 1,000 mg PO TID 10/06/21 12/13/21 History albuterol sulfate 2 puff INHALATION BID 10/06/21 12/13/21 History topiramate 50 mg tablet 50 mg PO BID #180 tablet 12/01/21 12/13/21 Rx clindamycin HCl 300 mg PO Q8H 10 Days
[2021-12-13 10:53] LABS: Hemoglobin A1C 6.9 % (<5.7)
[2021-12-13 11:46] LABS: Glucose Point of Care 146 mg/dl (65-105)
[2021-12-13] MEDS: ACETAMINOPHEN 500 MG TABLET 1000 MG PO ×2 (13:18→16:43)
[2021-12-13 16:28] LABS: Glucose Point of Care 124 mg/dl (65-105)
[2021-12-13] MEDS: CALCIUM CARBONATE (OSCAL) 500 MG TABLET PO (16:43)
[2021-12-13] MEDS: ACETAMINOPHEN 325 MG TABLET 650 MG PO (20:05)
[2021-12-13 20:41] LABS: Glucose Point of Care 118 mg/dl (65-105)
[2021-12-13] MEDS: ALBUTEROL SULFATE (*SP) AEROSOL 1 PUFF 2 PUFF INHALATION (20:58)
[2021-12-13] MEDS: WATER FOR IRRIGATION, STERILE 1,000 ML BOTTLE 1000 ML (21:43)
[2021-12-14 02:21] VITALS: PULSE 61; O2SAT 94
[2021-12-14] MEDS: ALBUTEROL SULFATE (*SP) AEROSOL 1 PUFF 2 PUFF INHALATION ×3 (02:21→14:07)
[2021-12-14] MEDS: traMADol HCL (*CRX) 50 MG TABLET 100 MG PO (04:04)
[2021-12-14] MEDS: ONDANSETRON HCL ODT 4 MG TABLET PO ×2 (04:04→10:25)
[2021-12-14] MEDS: CLINDAMYCIN HCL 150 MG CAP 300 MG PO ×2 (05:19→15:03)
[2021-12-14] MEDS: SODIUM CHLORIDE 0.9% IV 1,000 ML 100 ML IV CONT (05:21)
[2021-12-14 06:00] VITALS: BP 119/42; PULSE 82; RESP 20; TEMP 37; O2SAT 99
[2021-12-14 06:58] LABS: Basophils Absolute Auto 0.1 K/mm3 (0.0-0.1); Basophils Percent Auto 0.8 % (0.2-1.2); Eosinophils Absolute Auto 0.2 K/mm3 (0-0.3); Eosinophils Percent Auto 3.4 % (0-4.4); Hematocrit 41.8 % (37.0-47.0); Hemoglobin 13.3 g/dL (12.0-15.0); Immature Granulocyte Absolute 0.03 K/mm3 (0.00-0.031); Immature Granulocyte Percent A 0.5 % (0-0.5); Lymphocytes Absolute Auto 1.33 K/mm3 (0.9-3.2); Lymphocytes Percent Auto 22.5 % (18.3-44.2); Mean Corpuscular HGB Conc 31.8 g/dl (32-36); Mean Corpuscular Hemoglobin 30.9 pg (26-34); Mean Platelet Volume 9.1 fl (7.4-10.4); Monocytes Absolute Auto 0.6 K/mm3 (0.1-0.6); Monocytes Percent Auto 10.8 % (2.6-8.5); Neutrophils Absolute Auto 3.7 K/mm3 (1.3-6.7); Platelet Count Result 224 k/mm3 (150-375); Red Blood Count 4.31 M/mm3 (4.2-5.4); Red Cell Distribution Width 14.6 % (11.5-14.5); White Blood Count 5.9 K/mm3 (4.5-10.0)
[2021-12-14 07:09] LABS: Alanine Aminotransferase 28 U/L (6-35); Albumin Level 3.3 g/dL (3.5-5.1); Alkaline Phosphatase 67 U/L (38-126); Anion Gap 3 mmol/L (8-16); Aspartate Amino Transferase 27 U/L (14-36); Bilirubin,Total 0.3 mg/dL (0.2-1.3); Blood Urea Nitrogen 9 mg/dL (7-17); Calcium 7.9 mg/dL (8.4-10.2); Carbon Dioxide 25 mmol/L (22-30); Chloride 109 mmol/L (98-107); Estimated Glomerular Filt Rate > 60; Glucose 151 mg/dL (65-110); Potassium 4.1 mmol/L (3.4-5.0); Sodium 137 mmol/L (137-145)
[2021-12-14] MEDS: ACETAMINOPHEN 325 MG TABLET 650 MG PO (07:43)
[2021-12-14] MEDS: INSULIN ASPART (*BKC) 100 UNITS/ML 10 UNITS SUB-Q ×2 (07:48→11:47)
[2021-12-14 07:49] LABS: Glucose Point of Care 137 mg/dl (65-105)
[2021-12-14] MEDS: ATORVASTATIN 40 MG TABLET PO (07:50)
[2021-12-14] MEDS: TOPIRAMATE 25 MG TABLET 50 MG PO (07:50)
[2021-12-14] MEDS: CALCIUM CARBONATE (OSCAL) 500 MG TABLET PO (07:51)
[2021-12-14] MEDS: MONTELUKAST SODIUM 10 MG TABLET PO (07:51)
[2021-12-14] MEDS: ASPIRIN 81 MG ENTERIC TABLET PO (07:51)
[2021-12-14] MEDS: LORATADINE 10 MG TABLET PO (07:52)
[2021-12-14] MEDS: lisinopriL 20 MG TABLET PO (07:52)
[2021-12-14] MEDS: PANTOPRAZOLE 40 MG TABLET PO (07:52)
[2021-12-14] MEDS: INSULIN GLARGINE (*BKC) 100 UNITS/ML 50 UNITS SUB-Q (07:58)
[2021-12-14] MEDS: FLUTICASONE/SALMETEROL 230-21 MCG INHALER 1 PUFF INHALATION (08:35)
--- NOTE | 2021-12-14 09:58 | PM.DS ---
DS: Admitting Diagnosis Discharge Date 12/14/2021 1600 Admitting Diagnosis back pain/ pink urine DS: Discharge Diagnosis Discharge Diagnosis (1) Abnormal urinalysis: Code(s): R82.90 - Unspecified abnormal findings in urine Status: Acute Assessment and Plan: Patient's admission UA showed 2+ protein 3+ blood 3+ glucose more than 75 RBCs, and 51-75 urine wbc's. Renal functions are normal. CT abdomen pelvis showed no urinary tract calculus or hydroureteronephrosis. WBC has normalized. VSS, patient denies additional urinary symptoms. Urology consulted and advised appropriate antibiotic coverage pending urine culture. Urine culture showed no growth. Discontinue antibiotics. (2) History of kidney stones: Code(s): Z87.442 - Personal history of urinary calculi Status: Acute Assessment and Plan: CT abdomen pelvis noncontrast showed No urinary tract calculus or hydroureteronephrosis, possible rounded 2 cm mass of lower pole of right kidney; further evaluation is recommended; consider repeat CT imaging with IV contrast material or MR examination. Left parapelvic renal cysts. BUN creatinine within normal limits. MR abdomen showed benign cysts in the kidneys and diffuse hepatic steatosis. (3) Staph infection: Code(s): B95.8 - Unspecified staphylococcus as the cause of diseases classified elsewhere Status: Acute Assessment and Plan: Patient seen recently here for Staph infection following sialadenitis, will continue home clindamycin. Continue clindamycin outpatient until prescrption is finished. MRSA swab pending (4) Chronic low back pain: Qualifiers: Back pain laterality: unspecified Sciatica presence: unspecified whether sciatica present Qualified Code(s): M54.5 - Low back pain; G89.29 - Other chronic pain Code(s): M54.5 - Low back pain; G89.29 - Other chronic pain Status: Acute Assessment and Plan: Patient has severe arthritis, with constant chronic lower back pain. Continue home meds. (5) NELLY on CPAP: Code(s): G47.33 - Obstructive sleep apnea (adult) (pediatric); Z99.89 - Dependence on other enabling machines and devices Status: Acute Assessment and Plan: Continue CPAP therapy with home settings while here and upon discharge (6) COPD (chronic obstructive pulmonary disease): Code(s): J44.9 - Chronic obstructive pulmonary disease, unspecified Status: Acute Assessment and Plan: No evidence of current exacerbation, patient oxygenating well on room air. Continue home inhalers (7) Diabetes type 2, uncontrolled: Qualifiers: Glycemic state: with hyperglycemia Qualified Code(s): E11.65 - Type 2 diabetes mellitus with hyperglycemia Code(s): E11.65 - Type 2 diabetes mellitus with hyperglycemia Status: Acute Assessment and Plan: A1c 6.9. Continued home insulin aspart 10 units t.i.d. and insulin glargine 50 units subQ daily. Discharge with home meds, advise diabetic diet. (8) Migraine: Code(s): G43.909 - Migraine, unspecified, not intractable, without status migrainosus Status: Acute Assessment and Plan: Patient reports history of migraine headaches, with one today. Migraine cocktail given. Patient symptoms have resolved. Follow up with primary care regarding migraine treatment. (9) Essential (primary) hypertension: Code(s): I10 - Essential (primary) hypertension Status: Acute Assessment and Plan: Patient normotensive currently Continue home medications upon discharge. DS: Summary Hospital Course Reason for hospitalization: Abnormal urinalysis. Hospital Course: See above for full hospital course Status at Discharge Overall status at discharge: patient is progressing back to baseline Time Spent with Patient Time attestation: Total time spent providing and/or coordinating discharge
[2021-12-14] MEDS: diphenhydrAMINE HCl INJ 50 MG/ML VIAL 25 MG IV PUSH (10:22)
[2021-12-14] MEDS: KETOROLAC 30 MG/ML VIAL (*BKC) IV PUSH (10:23)
[2021-12-14] MEDS: PROCHLORPERAZINE EDISYLATE 10 MG/2 ML VIAL IV PUSH (10:24)
[2021-12-14] MEDS: CHOLESTYRAMINE LIGHT 4 GM POWD.PACK PO (11:13)
[2021-12-14 11:43] LABS: Glucose Point of Care 165 mg/dl (65-105)
[2021-12-14] MEDS: ACETAMINOPHEN 500 MG TABLET 1000 MG PO (11:47)
== END 2021-12-14 15:20 | disposition home or self-care (01) ==
LOC: ANHED 22:29 → ANH2MED 12-13 02:07
PROVIDERS: Admitting Provider Internal Medicine; Emergency Provider Emergency Medicine; PCP Internal Medicine; Visit Provider Student in an Organized Health Care Education/Training Program
DX: R82.998 Other abnormal findings in urine (principal); Z87.442 Personal history of urinary calculi; J44.9 Chronic obstructive pulmonary disease, unspecified; G43.909 Migraine, unspecified, not intractable, without status migrainosus; B95.8 Unspecified staphylococcus as the cause of diseases classified elsewhere; M54.50 Low back pain, unspecified; G89.29 Other chronic pain; E11.65 Type 2 diabetes mellitus with hyperglycemia; I10 Essential (primary) hypertension
CPT/HCPCS: 36415; 74176; 74183; 80053; 81001; 82948; 83036; 83735; 85025; 87081; 87086; 87088; 94640; 96361; 96365; 96375; 96376; 99285; A9270; A9577; G0378; J0696; J0780; J1100; J1200; J1815; J1885; J7030; J7120

== ENCOUNTER → 2022-01-14 08:39 | Outpatient (CLI) | payer MEDICARE, SELFPAY ==
--- NOTE | ~2022-01-14 | CT_ITS ---
EXAMINATION: CT soft tissue neck wo con DATE: 01/14/2022 09:03 INDICATION: Headache. Dysphagia. TECHNIQUE: Computed tomography (CT) of the neck was performed without intravenous contrast. Automated exposure control and iterative reconstruction technique were employed. The dose-length product was 4 47.60 mGy-cm. COMPARISON: Neck CT 12/09/2021 FINDINGS: There is a 3 mm sialolith in the duct for left submandibular gland. There are changes of re section of the left submandibular gland with residual bandlike scarring. There is a sagittal oblique fracture of tooth 18. There are periapical lucencies at tooth 18 with breech of the lingual cortex of the alveolar process. There are no pathologically enlarged lymph nodes. The paranasal sinuses are cl ear. The mastoid air cells are normal. There is severe cervical spondylosis. IMPRESSION: 1. Fracture of tooth 18 with periapical lucencies with breech of the lingual cortex of the alveolar p rocess. 2. 3 mm sialolith in the duct for left submandibular gland. 3. Changes of resection of the left submandibular gland with residual bandlike scarring. Reviewed, dictated and finalized at location B. IMPRESSION: 1. Fracture of tooth 18 with periapical lucencies with breech of the lingual co rtex of the alveolar process. 2. 3 mm sialolith in the duct for left submandibular gland. 3. Changes of resection of the left submandibular gland with residual bandlike scarring.
== END ==
PROVIDERS: PCP Internal Medicine; Visit Provider Otolaryngology
DX: R51.9 Headache, unspecified (principal); K03.81 Cracked tooth; K11.5 Sialolithiasis; Z98.890 Other specified postprocedural states
CPT/HCPCS: 70490

== ENCOUNTER 2022-07-07 15:29 | Outpatient (CLI) | payer MEDICARE, SELFPAY ==
--- NOTE | ~2022-07-07 | XR_ITS ---
XR chest 2V DATE: 07/07/2022 15:55 INDICATION: Cough for 4 weeks. Shortness of breath. Asthma. TECHNIQUE: PA and lateral views COMPARISON: 03/16/2019 two-view chest FINDINGS: Normal heart size. No hilar or mediastinal enlargement. No pulmonary infiltrate or consolid ation, pleural effusion or pulmonary vascular congestion or pneumothorax. Included skeletal structure s are unremarkable. IMPRESSION: No active cardiopulmonary disease Reviewed, dictated and finalized at location B. 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
== END 2022-07-07 15:30 | disposition home or self-care (01) ==
LOC: ANHIMG 15:30
PROVIDERS: PCP Internal Medicine; Visit Provider Internal Medicine
DX: R05.9 Cough, unspecified (principal); R09.89 Other specified symptoms and signs involving the circulatory and respiratory systems
CPT/HCPCS: 71046

== ENCOUNTER 2023-03-03 07:24 | Outpatient (CLI) | payer MEDICARE, SELFPAY ==
--- NOTE | ~2023-03-03 | CT_ITS ---
CT of the Abdomen and Pelvis: Indication: Renal cyst Technique: 2.5 mm axial scans were obtained through the abdomen and pelvis prior to and following in travenous administration of 100 cc of Omnipaque 350. Dose reduction technique was used on this scan b y utilizing automated exposure control and iterative reconstruction technique. The dose-length produc t (DLP) was 2413.21 mGy-cm. COMPARISON: CT dated 12/12/2021, MR dated 12/13/2021 Findings: Scans through the lung bases demonstrates stable minimal scarring at the right middle lobe and lingula. The liver, spleen, pancreas, and adrenal glands are within normal limits. 2.7 cm simple cyst present at the right lower renal pole. There are multiple parapelvic left renal cysts. Cholecystectomy clips are present. No evidence of aortic aneurysm. No lymphadenopathy. No bowel obstruction or bowel wall thickening. There is no evidence to suggest acute appendicitis. St able 1.1 cm soft tissue nodule right lower quadrant (axial image 117). Images through the pelvis were performed. Urinary bladder unremarkable. Patient is post hysterectomy. No pelvic mass evident. No ascites. Impression: Bilateral renal cysts, as detailed above. Stable 1.1 cm soft tissue nodule in the right lower quadrant, nonspecific. Stability since prior exam suggests benignity. Reviewed, dictated and finalized at location . Impression: Bilateral renal cysts, as detailed above. Stable 1.1 cm soft tissue nodule in the right lower quadrant, nonspecific. Stab ility since prior exam suggests benignity.
--- NOTE | ~2023-03-03 | XR_ITS ---
Supine and upright views of the abdomen Clinical history: Renal cyst COMPARISON: 09/08/2018 Findings: Bowel gas pattern is nonspecific. Moderate stool present. No evidence for obstruction or fr ee air. No abnormal mass lesion or calcification is seen. Outside pelvic phleboliths noted. Osseous s tructures are intact. Impression: Moderate stool. Correlate for constipation. Reviewed, dictated and finalized at location . Impression: Moderate stool. Correlate for constipation.
[2023-03-03 07:51] LABS: Estimated Glomerular Filt Rate > 60
== END 2023-03-03 07:25 | disposition home or self-care (01) ==
PROVIDERS: PCP Internal Medicine; Visit Provider Urology
DX: N28.1 Cyst of kidney, acquired (principal); R22.2 Localized swelling, mass and lump, trunk
CPT/HCPCS: 74018; 74178; Q9967

== ENCOUNTER 2023-08-31 14:52 | Outpatient (CLI) | payer MEDICARE, SELFPAY ==
--- NOTE | 2023-08-31 15:00 | ECHO_ITS ---
Patient Info Name: Tonya Brambila Age: 67 years : 1955 Gender: Female Ht: 57 in Wt: 243 lbs BSA: 2.19 m2 HR: 98 bpm BP: 136 / 70 mmHg Technical Quality: Fair Exam Date: 08/31/2023 3:06 PM Exam Location: Echo Lab Patient Status: Outpatient Admit Date: 08/31/2023 Staff Ordering Physician: Kwabena Liu MD Attending Provider: Kwabena Liu MD Referring Physician: Noe PAGE; Exam Type: CA echo doppler color flow Study Info Indications R94.31 - Abnormal electrocardiogram ECG EKG Complete two-dimensional, color flow and Doppler transthoracic echocardiogram is performed. Summary 1. Complete two-dimensional, color flow and Doppler transthoracic echocardiogram is performed. 2. Left ventricular chamber dimension is normal. 3. Left ventricular systolic function is hyperdynamic, estimated at >70%. 4. There is mild concentric increased left ventricular wall thickness. 5. The left ventricular diastolic function is grade I diastolic dysfunction. 6. E/e' 7 is not elevated. 7. There is mild tricuspid valve regurgitation. 8. No pulmonary hypertension, estimated pulmonary arterial systolic pressure is 31 mmHg. Left Ventricle E/e' 7 is not elevated. Left ventricular chamber dimension is normal. Left ventricular systolic function is hyperdynamic, estimated at >70%. There is mild concentric increased left ventricular wall thickness. The left ventricular diastolic function is grade I diastolic dysfunction. Right Ventricle Right ventricular systolic function is normal and with normal TAPSE 2.8 cm. Right ventricular chamber dimension is normal. Left Atria Left atrial chamber dimension is normal. Right Atria Right atrial chamber dimension is normal. Aortic Valve The aortic valve is probable trileaflet. There is no aortic valve stenosis. There is no aortic valve regurgitation. Pulmonic Valve There is no pulmonic regurgitation. Mitral Valve There is no mitral valve stenosis. There is no mitral valve regurgitation. Tricuspid Valve There is mild tricuspid valve regurgitation. No pulmonary hypertension, estimated pulmonary arterial systolic pressure is 31 mmHg. Pericardium/Pleural There is no pericardial effusion. Inferior Vena Cava Normal inferior vena cava with >50% collapse upon inspiration consistent with normal right atrial pressure, 5 mmHg. Aorta The aortic root size at the sinus of Valsalva is normal. Left Ventricular Outflow Tract Name Value Normal LVOT 2D LVOT Diameter 1.9 cm LVOT Doppler LVOT Peak Gradient 5 mmHg LVOT Mean Gradient 2 mmHg LVOT VTI 22 cm LVOT VTI/AV VTI Ratio 0.6 LVOT Stroke Volume 64 ml LVOT CO 6.0 l/min LVOT CI 2.7 l/min/m2 Pulmonic Valve Name Value Normal PV Doppler PV Peak Gradient
== END 2023-08-31 14:53 | disposition home or self-care (01) ==
LOC: ANHCARD 14:52
PROVIDERS: PCP Internal Medicine; Visit Provider Internal Medicine
DX: R94.31 Abnormal electrocardiogram [ECG] [EKG] (principal); R93.1 Abnormal findings on diagnostic imaging of heart and coronary circulation; I07.1 Rheumatic tricuspid insufficiency
CPT/HCPCS: 93306

== ENCOUNTER 2023-10-07 10:12 | Outpatient (CLI) | payer MEDICARE, SELFPAY ==
--- NOTE | ~2023-10-07 | DEXA_ITS ---
Bone Density Report Name: CHLOE LUCERO Age: 67 Sex: Female Ethnicity: White Date of : 1955 Indication: postmenopausal; screening for osteoporosis; height loss; asthma or emphysema; hysterectomy; Referring Provider: RAUL, JATIN Study: Bone densitometry was performed. Exam Date: October 07, 2023 Accession number: [id number] Bone Density: Region BMD T-score Z-score Classification AP Spine (L1, L2, L3) 1.014 0.0 1.8 Normal Femoral Neck (Left) 0.703 -1.3 0.3 Osteopenia Total Hip (Left) 1.079 1.1 2.5 Normal Femoral Neck (Right) 0.831 -0.2 1.5 Normal Total Hip (Right) 0.974 0.3 1.6 Normal Total Hip Mean 1.027 0.7 2.1 Normal World Health Organization criteria for BMD impression classify patients as: Normal (T-score at or above -1.0), Osteopenia (T-score between -1.0 and -2.5), or Osteoporosis (T-score at or below -2.5). 10-year Fracture Risk(1): Major Osteoporotic Fracture 7.0% Hip Fracture 0.6% Reported Risk Factors: [place] (), Neck BMD=0.703, BMI=53.0 (1) FRAX(R) Version 3.08. Fracture probability calculated for an untreated patient. Fracture probability may be lower if the patient has received treatment. Previous Exams: Region Exam Age BMD T-score BMD Change BMD Change Date g/cm2 vs Baseline vs Previous AP Spine(L1, L2, L3) 10/07/2023 67 1.014 0.0 -0.047 0.003 03/26/2020 64 1.012 -0.1 -0.050 -0.067* 03/05/2013 57 1.078 0.5 0.017 0.040* 06/20/2010 54 1.039 0.2 -0.023 -0.023 05/24/2006 50 1.062 0.4 Total Hip(Left) 10/07/2023 67 1.079 1.1 0.058 -0.113* 03/26/2020 64 1.192 2.0 0.170 0.173* 03/05/2013 57 1.019 0.6 -0.003 0.083* 06/20/2010 54 0.936 0.0 -0.085 -0.085 05/24/2006 50 1.021 0.7 Total Hip(Right) 10/07/2023 67 0.974 0.3 0.039 -0.085* 03/26/2020 64 1.059 1.0 0.124 0.090* 03/05/2013 57 0.968 0.2 0.034 0.052* 06/20/2010 54 0.916 -0.2 -0.019 -0.019 05/24/2006 50 0.935 -0.1 *Denotes significance at 95% confidence level, LSC for AP Spine = 0.022 g/cm2, LSC for Total Hip = 0.027 g/cm2 Clinical Information Provided by Patient: Has used the following medications: HRT (i.e. estrogen/hormone therapy), Vitamin D, Calcium, BRELuis MEDINA Has the following medical conditions:
== END 2023-10-07 10:13 ==
PROVIDERS: PCP Obstetrics & Gynecology Gynecology; Visit Provider Nurse Practitioner
DX: M85.88 Other specified disorders of bone density and structure, other site (principal); Z78.0 Asymptomatic menopausal state
CPT/HCPCS: 77080

== ENCOUNTER 2024-08-02 16:15 | Outpatient (CLI) | payer MEDICARE, SELFPAY ==
--- NOTE | ~2024-08-02 | XR_ITS ---
CHEST RADIOGRAPH, PA AND LATERAL CLINICAL HISTORY: R05.9 - Cough, unspecified . COMPARISON: 07/07/2022 TECHNIQUE: PA and lateral views of the chest. FINDINGS The cardiomediastinal silhouette is unremarkable. The lungs are clear. Visualized osseous structures and soft tissues are unremarkable. IMPRESSION: No focal infiltrate or effusion. Reviewed, dictated and finalized at location A. E TAPPER
== END 2024-08-02 16:16 | disposition home or self-care (01) ==
LOC: ANHIMG 16:19
PROVIDERS: PCP Internal Medicine; Visit Provider Internal Medicine
DX: R05.9 Cough, unspecified (principal)
CPT/HCPCS: 71046

== ENCOUNTER 2024-08-27 10:53 | Outpatient (CLI) | payer MEDICARE, SELFPAY ==
--- OUTSIDE RECORDS SUMMARY | 2024-08-27 11:59 | XMS_ITS | Clinical Summary ---
Author Organization [facility] Main [place] Address [address] [place] [address] Care Team Providers Care Chocolate Dipper Name Role Phone Kwabena Liu MD Primary Care Provider [phone] Allergies Active Allergy Reactions Criticality Noted Date Comments Cephalexin Hives Reaction: HIVES Codeine Headache,Nausea only Low 08/13/2015 Erythromycin Nausea & Vomiting Low 08/13/2015 Fentanyl Itching Low 08/13/2015 Ibuprofen Hives 08/13/2015 Reaction: HIVES Morphine Anaphylaxis 08/13/2015 Reaction: ANAPHYLAXIS Naproxen Swelling 08/13/2015 Reaction: SWELLING Nitrofurantoin Hives 08/13/2015 Reaction: HIVES Medications traZODone (DESYREL) 300 mg tablet Active atorvastatin (LIPITOR) 20 mg tablet 08/11/19 19 Active QVAR REDIHALER 80 mcg/actuation inhaler 08/19/19 19 Active ONETOUCH VERIO strip 08/16/19 19 Active cholecalciferol (VITAMIN D3) 2,000 unit capsule Active cholestyramine (QUESTRAN) 4 gram packet Active ergocalciferol (VITAMIN D) 50,000 unit capsule TK 1 C PO ONCE A WEEK WITH A LARGE MEAL 0 09/04/19 19 Active esomeprazole (NexIUM Packet) 5 mg packet Active estradiol (VAGIFEM) 10 mcg tablet Insert into the vagina. Active TRESIBA FLEXTOUCH U-100 100 unit/mL (3 mL) insulin pen 08/22/19 19 Active ONETOUCH DELICA LANCETS 33 gauge misc 08/11/19 19 Active lisinopril (PRINIVIL,ZESTR IL) 20 mg tablet 08/11/19 19 Active montelukast (SINGULAIR) 10 mg tablet 08/11/19 19 Active topiramate (TOPAMAX) 50 mg tablet 08/11/19 19 Active aspirin 81 mg tablet Active cetirizine (ZyrTEC) 10 mg tablet Active calcium carbonate (CALCIUM 500 ORAL) Active cyclobenzaprine HCl (FLEXERIL ORAL) Active glucosamine-con droitin-ojev787 (COSAMIN ASU) 375-200-100 mg capsule Active dapagliflozin propanediol (FARXIGA ORAL) Take by mouth. Active albuterol 2.5 mg /3 mL (0.083 %) nebulizer solution USE 1 VIAL VIA NEBULIZER EVERY 4 TO 6 HOURS NEEDED FOR SHORTNESS OF BREATH OR WHEEZING 08/15/19 Active NovoLOG 100 unit/mL (3 mL) pen for injection INJECT 10 UNITS SUBCUTANEOUSLY THREE TIMES DAILY 09/28/19 21 Active Active Problems Problem Noted Date Diagnosed Date Breast cancer screening, high risk patient 09/14 Family History Medical History Relation Name Comments Lung cancer Father Family history of lung cancer - (Added by TW Conv) Relation Name Status Comments Father Social History Tobacco Use Types Packs/Day Years Used Date Smoking Tobacco: Never Smokeless Tobacco: Never Alcohol Use Standard Drinks/Week Comments No 0 (1 standard drink = 0.6 oz pur e alcohol) Personal Safety Answer Date Recorded Getting School Help Needed Not on file 09/21 Comments Unknown Sex and Gender Information Value Date Recorded Sex Assigned at Not on file 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 Gender Identity Not on file Sexual Orientation Not on file Obstetrics History Last Filed Vital Signs Vital Sign Reading Time Taken Comments Blood Pressure 106/43 08/27/2011 2:13 PM BAG FILLER MACHINE OPERATOR Pulse 103 08/27/2011 2:13 PM BAG FILLER MACHINE OPERATOR Temperature - - Respiratory Rate - - Oxygen Saturation - - Inhaled Oxygen Concentration - - Weight 104.3 kg (230 lb) 10/27/2020 9:06 AM CDT Height 147.3 cm (4' 10 ) 10/27/2020 9:06 AM CDT Body Mass Index 48.07 10/27/2020 9:06 AM CDT Plan of Treatment Health Maintenance Due Date Last Done Comments Colon Cancer Screening-Colonoscopy 1955 Depression Screening 1955 Fall Risk Assessment 1955 Hepatitis C Screening 1955 Osteoporosis Screening-Bone Density Scan 1955 Hepatitis B Screening 1974 Zoster Vaccine (1 of 2) 2006 Pneumococcal vaccine 65+ (2 of 2 - PCV) 2021 06/12/2018 Well Visit 65+ 2021 Influenza Vaccine (#1) 2024 6, 05/19/2014, 05/09/2014 Breast Cancer Screening-Mammogram 05/10/2024 05/10/2023, 04/02/2022, 10/27/2020, Additional history exists DTaP/Tdap/Td Vaccine (2 - Td or Tdap) 10/31/2025 11/01/2015 Procedures Procedure Name Priority Date/Time Associated Diagnosis Comments SCREENING MAMMOGRAM BILATERAL W KIERAN Schedule Routine, Read Routine (OP Routine) 05/10/2023 10:03 AM CDT Screening mammogram, encounter for from Last 3 Months or Most Recently Relevant to Health Maintenance Results * Screening Mammogram Bilateral W Kieran (05/10/2023 10:03 AM CDT) Anatomical Region Laterality Modality Breast Bilateral Mammography Narrative 05/11/2023 3:11 PM CDT Mammogram Technique: Bilateral Digital Breast Tomosynthesis, Bilateral C-view 2D Screening mammogram. ??Views obtained: ??bilateral craniocaudal and bilateral mediolateral oblique. ??Computer Aided Detection was performed. Mammogram Findings: The present examination has been compared to prior imaging studies performed at [facility] on 09/26/2019, 10/27/2020 and 04/02/2022. There are scattered areas of fibroglandular density. There is no suspicious abnormality in either breast. Impression: There is no mammographic evidence of malignancy. Annual screening mammography is recommended. OVERALL FINAL ASSESSMENT: BI-RADS CATEGORY 1: ??Negative. Procedure Note Sonia Michael MD - 05/11/2023 Mammogram Technique: Bilateral Digital Breast Tomosynthesis, Bilateral C-view 2D Screening mammogram. Views obtained: bilateral craniocaudal and bilateral mediolateral oblique. Computer Aided Detection was performed. Mammogram Findings: The present examination has been compared to prior imaging studies performed at [facility] on 09/26/2019, 10/27/2020 and 04/02/2022. There are scattered areas of fibroglandular density. There is no suspicious abnormality in either breast. Impression: There is no mammographic evidence of malignancy. Annual screening mammography is recommended. OVERALL FINAL ASSESSMENT: BI-RADS CATEGORY 1: Negative. us Self Screening Mammogram IMG MAMMO PROCEDURES Fi nal Result from Last 3 Months or Most Recently Relevant to Health Maintenance Insurance [facility] MEDICARE SUPPLEMENT INSURANCE MEDICARE [facility] CHOICE PLUS MEDICARE MEDICARE [facility] MEDICARE SUPPLEMENT INSURANCE Care Teams Chocolate Dipper Relationship Specialty Start Date End Date Kwabena Liu MD [address] [facility] [address] [place] [address] PCP - General Internal Medicine 12/14/17
--- OUTSIDE RECORDS SUMMARY | 2024-08-27 11:59 | XMS_ITS | Clinical Summary ---
Author Organization [facility] Address [address] [place] [address] Phone Care Team Providers Care Family Counselor Name Role Phone Kwabena Liu MD Primary Care Provider [phone] Social History Tobacco Use Types Packs/Day Years Used Date Smoking Tobacco: Never Assessed Comments Unknown Sex and Gender Information Value Date Recorded Sex Assigned at Not on file Legal Sex Female 8:06 AM CDT Gender Identity Not on file Sexual Orientation Not on file Plan of Treatment Health Maintenance Due Date Last Done Comments DEXA Bone Density 1955 Hepatitis C Virus (HCV) Screening 1955 Colonoscopy 2001 Colorectal Cancer Screening 2001 Cologuard 2006 Immunochemical Fecal Occult Blood 2006 Mammogram 2006 Pneumococcal Immunization (50+ years) (2 of 2 - PCV) 06/12/2019 06/12/2018 Influenza Immunization (#1) 2024 1208/2020, 04/24/2020, 06/06/2016, Additional history exists SARS-COV-2 Immunization ( season) 2024 11/25/2020, 11/04/2020 Respiratory Syncytial Virus (RSV) Immunization (Adult) (1 - 1-dose 75+ series) 11/16/2031 DTaP/Tdap/Td Immunization Discontinued 11/01/2015 TdaP Immunization Completed 11/01/2015 Zoster Immunization Completed 06/23/2020, 0 Hepatitis B Immunization Aged Out No longer eligible based on patient's age to complete this topic Meningococcal Immunization (ACWY) Aged Out No longer eligible based on patient's age to complete this topic Rotavirus Immunization Aged Out No lo nger eligible based on patient's age to complete this topic Insurance MEDICARE [facility] MEDICARE [facility] Care Teams Family Counselor Relationship Specialty Start Date End Date Kwabena Liu MD [address] [place] [address] PCP - General Internal Medicine 06/08/22
--- OUTSIDE RECORDS SUMMARY | 2024-08-27 11:59 | XMS_ITS | Referral Summary ---
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 Gender Identity Not on file Sexual Orientation Not on file Last Filed Vital Signs Vital Sign Reading Time Taken Comments Blood Pressure 106/43 08/27/2011 2:13 PM HARDENING MACHINE OPERATOR Pulse 103 08/27/2011 2:13 PM HARDENING MACHINE OPERATOR Temperature - - Respiratory Rate - - Oxygen Saturation - - Inhaled Oxygen Concentration - - Weight 104.3 kg (230 lb) 10/27/2020 9:06 AM CDT Height 147.3 cm (4' 10 ) 10/27/2020 9:06 AM CDT Body Mass Index 48.07 10/27/2020 9:06 AM CDT Plan of Treatment Not on file Procedures Procedure Name Priority Date/Time Associated Diagnosis [...] compared to prior imaging studies performed at [facility] on 09/26/2019, 10/27/2020 and 04/02/2022. There are [...] compared to prior imaging studies performed at [facility] on 09/26/2019, 10/27/2020 and 04/02/2022. There are scattered areas of fibroglandular density. There is no suspicious abnormality in either breast. Impression: There is no mammographic evidence of malignancy. Annual screening mammography is recommended. OVERALL FINAL ASSESSMENT: BI-RADS CATEGORY 1: Negative. us Self Screening Mammogram IMG MAMMO PROCEDURES Fi nal Result from Last 3 Months or Most Recently Relevant to Health Maintenance Insurance [facility] MEDICARE SUPPLEMENT INSURANCE MEDICARE [facility] LIZ [id number] [address] CHOICE PLUS MEDICARE MEDICARE [facility] MEDICARE SUPPLEMENT INSURANCE Care Teams Retail Support Associate Relationship Specialty Start Date End Date Kwabena Liu MD [address] [facility] [address] [place] [address] PCP - General Internal Medicine 12/14/17
--- OUTSIDE RECORDS SUMMARY | 2024-08-27 11:59 | XMS_ITS | Clinical Summary ---
Author Organization [facility] Address [address] [place] [address]. [place] [address] [place] [address] Care Team Providers Care Equipment Driver Name Role Phone Unavailable Primary Care Provider Unavailabl e Social History Tobacco Use Types Packs/Day Years Used Date Smoking Tobacco: Never Assessed Comments Unknown Sex and Gender Information Value Date Recorded Sex Assigned at Not on file Legal Sex Female 6:31 PM CDT Gender Identity Not on file Sexual Orientation Not on file Plan of Treatment Health Maintenance Due Date Last Done Comments Colorectal Cancer Screening Colonoscopy (10 Years) 1955 Hepatitis C 1974 DTaP, Tdap and Td Vaccines ( 1 - Tdap) 11/16/1975 Mammogram Screening 1996 Zoster Vaccines (1 of 2) 2006 Dexa Scan (General) 2021 Pneumococcal Vaccine: 65+ Ye ars (1 of 1 - PCV) 2021 COVID-19 Vaccine (2023-2 5 season) 2024 Influenza Adult (#1) 2024 RSV Immunization or 60+ Years (1 - 1-dose 75+ series) 11/16/2031 Meningococcal B Vaccine Aged Out No l onger eligible based on patient's age to complete this topic Meningococcal Vaccine Aged Out No yokasta devin eligible based on patient's age to complete this topic RSV Immunizations Under 20 Months Aged Out No longer eligible based on patient's age to complete this topic
== END 2024-08-27 10:54 | disposition home or self-care (01) ==
LOC: ANHAUDIO 10:54
PROVIDERS: PCP Internal Medicine; Visit Provider Audiologist
DX: H90.3 Sensorineural hearing loss, bilateral (principal); H93.13 Tinnitus, bilateral
CPT/HCPCS: 92557; 92567

== ENCOUNTER 2024-12-26 10:30 | Outpatient (RCR) | payer SELFPAY | END 2024-12-26 23:59 | disposition home or self-care (01) | LOC: ANHAUDIO 10:30 | PROVIDERS: PCP Internal Medicine; Visit Provider Internal Medicine | DX: Z46.1 Encounter for fitting and adjustment of hearing aid (principal) | CPT/HCPCS: 99199; V5261 ==